=== PATIENT | female | born 1960 | race Caucasian/White ===

== ENCOUNTER 2018-11-27 01:40 | Inpatient (IN) | payer OTHER ==
[~2018-11-27] VITALS: Ht 167.6 cm; Wt 88.9 kg
--- OUTSIDE RECORDS SUMMARY | 2018-11-27 01:42 | XMS REPORT | Summary of Care ---
Author Author [facility] Organization [facility] Address Unknown Phone Unavailable Encounter SANNA Louise(DEX) [id number] Date(s): 07/23/17 - 07/23/17 [facility] [address] [place] [address]- Discharge Disposition: Home or Self Care Attending Physician: Redd Rodriguez MD Referring Physician: Redd Rodriguez MD Vital Signs Most recent to 1 oldest [Reference Range]: Height 170.18 cm (07/23/17 7:26 AM) Weight 99 kg (07/23/17 7:26 AM) Body Mass Index 34.18 m2 (07/23/17 7:26 AM) Problem List Condition Effective Dates Status Health Status Informant AF - Atrial 05/18/15 Active fibrillation(Confirm ed)1 Antiepileptic 04/26/16 Active adverse reaction(Confirmed)2 Atrial Resolved fibrillation(Confirm ed) Chronic atrial 04/26/16 Active fibrillation(Confirm ed)3 CHF (congestive Resolved heart failure)(Confirmed) EP Active (epilepsy)(Confirmed ) Fall(Confirmed)4 04/26/16 Active Acid Active reflux(Confirmed) Generalized anxiety 04/26/16 Active disorder(Confirmed)5 Generalized 04/27/16 Active epilepsy(Confirmed)6 Hx of blood Resolved clots(Confirmed)7 Hypertension(Confirm Active ed) Major depressive 05/18/15 Active disorder(Confirmed)8 Chronic migraine Active without aura or status migrainosus(Confirme d) Migraine without 04/26/16 Active aura, not refractory(Confirmed )9 Depression(Confirmed Active ) HERNAN (obstructive Active sleep apnea)(Confirmed) Palpitations(Confirm 05/31/14 Active ed)10 Recurrent major 04/26/16 Active depression in partial remission(Confirmed) 11 Sciatica(Confirmed) Resolved 1Data migrated from [employer] on 09/23/15. The palpitations were from Afib. Originally documented as Atrial fibrillation. 2Data migrated from [employer] on 09/23/15. SE of TPM in higher dose. We will lower the dose. Originally documented as Antiepileptic adverse reaction, initial encounter. 3Data migrated from [employer] on 09/23/15. On Eliquis. Originally documented as Chronic atrial fibrillation. 4Data migrated from [employer] on 09/23/15. The fall does not appear to have caused harm. She does not need reevaluation. She has ongoing cardiac evaluation. Originally documented as Fall, initial encounter. 5Data migrated from [employer] on 09/23/15. Stable. Originally documented as Generalized anxiety disorder. 6Data migrated from [employer] on 09/23/15. The seizures are less prominent but still active. We have not been able to control them. Though she has very fabio l childhood epilepsy, the seizures are most controlled by her psychic state. Otis ginally documented as Generalized epilepsy, intractable. 7in heart 8Data migrated from [employer] on 09/23/15. Now developing late insomnia and crying typical of MDD. Originally documented as MDD (major depressive disorder). 9Data migrated from [employer] on 09/23/15. The patient s migraines have gone out of control since she has been off of atenolol. The med had to be stopped because of bradycardia in the face of her dysrhythmic disorder. I have discussed this with Dr. Rodriguez. The patient has very few choices left for her CM. We will trial her on nadolol. The patient was clear that this med too could cause heart rate slowing or syncope so self monitoring follow up and close reporting are important. Originally documented as Common migraine without intractability. 10Data migrated from [employer] on 09/23/15. Unclear etiology. Originally documented as Palpitations. 11Data migrated from [employer] on 09/23/15. Doing well. Originally documented as MDD (major depressive disorder), recurrent, in partial remission. Allergies, Adverse Reactions, Alerts Substance Reaction Severity Status metaxalone1 Active Skelaxin Active 1Data migrated from [employer] on 09/21/16. Originally documented as Skelaxin. Medications No Known Medications Results ENDOCRINOLOGY Most recent to 1 oldest [Reference Range]: S Preg [Negative] Negative *NA* (07/23/17 7:41 AM) HEMATOLOGY Most recent to 1 oldest [Reference Range]: WBC [3.7-10.4 K/CMM] 5.4 K/CMM (07/23/17 7:27 AM) RBC [4.20-5.40 4.73 M/CMM M/CMM] (07/23/17 7:27 AM) Hgb [12.0-16.0 g/dL] 12.9 g/dL (07/23/17 7:27 AM) Hct [36.0-48.0 %] 38.4 % (07/23/17 7:27 AM) MCV [80.0-98.0 fL] 81.2 fL (07/23/17 7: AM) MCH [27.0-31.0 pg] 27.3 pg (07/23/17 7: AM) MCHC [32.0-36.0 33.6 g/dL g/dL] (07/23/17 7:27 AM) RDW [11.5-14.5 %] 14.8 % *HI* (07/23/17 7:27 AM) Platelet [133-450 181 K/CMM K/CMM] (07/23/17 7:27 AM) MPV [7.4-10.4 fL] 9.1 fL (07/23/17 7:27 AM) Segs [45.0-75.0 %] 65.1 % (07/23/17 7:27 AM) Lymphocytes 26.6 % [20.0-40.0 %] (07/23/17 7:27 AM) Monocytes [2.0-12.0 5.2 % %] (07/23/17 7:27 AM) Eosinophils [0.0-4.0 2.4 % %] (07/23/17 7:27 AM) Basophils [0.0-1.0 0.7 % %] (07/23/17 7:27 AM) Segs-Bands # 3.5 K/CMM [1.5-8.1 K/CMM] (07/23/17 7:27 AM) Lymphocytes # 1.4 K/CMM [1.0-5.5 K/CMM] (07/23/17 7:27 AM) Monocytes # [0.0-0.8 0.3 K/CMM K/CMM] (07/23/17 7:27 AM) Eosinophils # 0.1 K/CMM [0.0-0.5 K/CMM] (07/23/17 7:27 AM) PT [12.0-14.7 16.5 seconds seconds] *HI* (07/23/17 7:27 AM) INR [0.85-1.17] 1.32 *HI* (07/23/17 7:27 AM) PTT [22.9-35.8 28.4 seconds seconds] (07/23/17 7:27 AM) Immunizations No data available for this section Procedures Procedure Date Related Diagnosis Body Site Lumpectomy 1992 Repair of cervix Social History Social History Type Response Exercise Exercise type: Walking. Employment/School Status: Employed. Highest education level: High school. Alcohol Never Smoking Status Never smoker; Exposure to Tobacco Smoke None; Cigarette Smoking Last 365 Days No; Reg Smoking Cessation Counseling No Assessment and Plan No data available for this section
--- OUTSIDE RECORDS SUMMARY | 2018-11-27 01:42 | XMS REPORT | Summary of Care ---
Author Author [facility] Organization [facility] Address Unknown Phone Unavailable Encounter SANNA Louise(DEX) [id number] Date(s): 07/19/17 - 07/19/17 [facility] [address] [place] [address]- [phone] Discharge Disposition: Home or Self Care Attending Physician: Redd Rodriguez MD Referring Physician: Redd Rodriguez MD Vital Signs Most recent to 1 oldest [Reference Range]: Height 170.18 cm (07/16/17 12:45 PM) Weight 99.091 kg (07/16/17 12:45 PM) Body Mass Index 34.22 m2 (07/16/17 12:45 PM) Problem List Condition Effective Dates Status Health [...] remission(Confirmed) 11 Sciatica(Confirmed) Resolved 1Data migrated from [employer] on 09/23/15. The palpitations were from Afib. Originally documented as Atrial fibrillation. 2Data migrated from [employer] on 09/23/15. SE of TPM in higher dose. We will lower the dose. Originally documented as Antiepileptic adverse reaction, initial encounter. 3Data migrated from [employer] on 09/23/15. On Eliquis. Originally documented as Chronic atrial fibrillation. 4Data migrated from [employer] on 09/23/15. The fall does not appear to have caused harm. She does not need reevaluation. She has ongoing cardiac evaluation. Originally documented as Fall, initial encounter. 5Data migrated from [employer] on 09/23/15. Stable. Originally documented as Generalized anxiety disorder. 6Data migrated from [employer] on 09/23/15. The seizures are less prominent but still active. We have not been able to control them. Though she has very fabio l childhood epilepsy, the seizures are most controlled by her psychic state. Otis ginally documented as Generalized epilepsy, intractable. 7in heart 8Data migrated from [employer] on 09/23/15. Now developing late insomnia and crying typical of MDD. Originally documented as MDD (major depressive disorder). 9Data migrated from [employer] on 09/23/15. The patient s migraines have [...] Common migraine without intractability. 10Data migrated from [employer] on 09/23/15. Unclear etiology. Originally documented as Palpitations. 11Data migrated from [employer] on 09/23/15. Doing well. Originally documented as MDD (major depressive disorder), recurrent, in partial remission. Allergies, Adverse Reactions, Alerts Substance Reaction Severity Status metaxalone1 Active Skelaxin Active 1Data migrated from [employer] on 09/21/16. Originally documented as Skelaxin. Medications Cambia 50 mg oral powder for reconstitution =1 pkt, PO, Daily, PRN Severe Headache, mix in 30 to 60 mL of water, # 18 pkt, 0 Refill(s) Start Date: 07/16/17 Stop Date: 08/03/17 Status: Ordered metoprolol tartrate 50 mg oral tablet 50 mg=1 tab, PO, Bedtime, 0 Refill(s) Start Date: 07/16/17 Status: Ordered Vitamin D3 1000 intl units oral capsule 1,000 IntlUnit=1 cap, PO, Daily, # 100 cap, 0 Refill(s) Start Date: 07/16/17 Status: Ordered Xanax 1 mg oral tablet 1 mg, Route: PO, Drug form: TAB, ONCE, Dosing Weight 99.091, kg, PRN Anxiety, Pr iority: NOW, Start date: 07/19/17 7:16:00 [employer] Start Date: 07/19/17 Stop Date: 07/19/17 Status: Completed Results ELECTROLYTES Most recent to 1 oldest [Reference Range]: Sodium Lvl [135-145 145 mEq/L mEq/L] (07/16/17 12:29 PM) Potassium Lvl 4.4 mEq/L [3.5-5.1 mEq/L] (07/16/17 12:29 PM) Chloride Lvl [95-109 112 mEq/L mEq/L] *HI* (07/16/17 12:29 PM) CO2 [24-32 mEq/L] 26 mEq/L (07/16/17 12:29 PM) AGAP [10.0-20.0 11.4 mEq/L mEq/L] (07/16/17 12:29 PM) CHEM PANEL Most recent to 1 oldest [Reference Range]: Creatinine Lvl 1.17 mg/dL [0.50-1.40 mg/dL] (07/16/17 12:29 PM) eGFR 53 mL/min/1.73m2 1 *NA* (07/16/17 12:29 PM) BUN [7-22 mg/dL] 24 mg/dL *HI* (07/16/17 12:29 PM) B/C Ratio [6-25] 21 (07/16/17 12:29 PM) Glucose Lvl [70-99 79 mg/dL mg/dL] (07/16/17 12:29 PM) Total Protein 7.4 g/dL [6.4-8.4 g/dL] (07/16/17 12:29 PM) Albumin Lvl [3.5-5.0 4.0 g/dL g/dL] (07/16/17 12:29 PM) Globulin [2.7-4.2 3.4 g/dL g/dL] (07/16/17 12:29 PM) A/G Ratio [0.7-1.6] 1.2 (07/16/17 PM) Calcium Lvl 9.0 mg/dL [8.5-10.5 mg/dL] (07/16/17:29 PM) ALT [0-65 unit/L] 35 unit/L (07/16/1729 PM) AST [0-37 unit/L] 18 unit/L (07/16/17:29 PM) Alk Phos [39-136 94 unit/L unit/L] (07/16/17: PM) Bili Total [0.2-1.3 0.5 mg/dL mg/dL] (07/16/1729 PM) 1Result Comment: The eGFR is calculated using the CKD-EPI formula. In most young, healthy individuals the eGFR will be >90 mL/min/1.73m2. The eGFR declines with age. An eGFR of 60-89 may be normal in some populations, particularly the elderly, for whom the CKD-EPI formula has not been extensively validated. Use of the eGFR is not recommended in the following populations: Individuals with unstable creatinine concentrations, including patients and those with serious co-morbid conditions. Patients with extremes in muscle mass or diet. The data above are obtained from the National Kidney Disease Education Program ( NKDEP) which additionally recommends that when the eGFR is used in patients with extremes of body mass index for purposes of drug dosing, the eGFR should be mul tiplied by the estimated BMI. HEMATOLOGY Most recent to 1 oldest [Reference Range]: WBC [3.7-10.4 K/CMM] 6.1 K/CMM (07/16/17 12:29 PM) RBC [4.20-5.40 4.94 M/CMM M/CMM] (07/16/17 12:29 PM) Hgb [12.0-16.0 g/dL] 13.2 g/dL (07/16/17 12:29 PM) Hct [36.0-48.0 %] 40.3 % (07/16/17:29 PM) MCV [80.0-98.0 fL] 81.7 fL (07/16/17:29 PM) MCH [27.0-31.0 pg] 26.8 pg *LOW* (07/16/1729 PM) MCHC [32.0-36.0 32.8 g/dL g/dL] (07/16/17 12:29 PM) RDW [11.5-14.5 %] 14.6 % *HI* (07/16/17:29 PM) Platelet [133-450 187 K/CMM K/CMM] (07/16/17:29 PM) MPV [7.4-10.4 fL] 8.9 fL (07/16/17:29 PM) Segs [45.0-75.0 %] 58.8 % (07/16/17:29 PM) Lymphocytes 32.4 % [20.0-40.0 %] (07/16/17:29 PM) Monocytes [2.0-12.0 5.8 % %] (07/16/17:29 PM) Eosinophils [0.0-4.0 2.4 % %] (07/16/17:29 PM) Basophils [0.0-1.0 0.6 % %] (07/16/17 12:29 PM) Segs-Bands # 3.6 K/CMM [1.5-8.1 K/CMM] (07/16/17:29 PM) Lymphocytes # 2.0 K/CMM [1.0-5.5 K/CMM] (07/16/17 12:29 PM) Monocytes # [0.0-0.8 0.4 K/CMM K/CMM] (07/16/17 12:29 PM) Eosinophils # 0.1 K/CMM [0.0-0.5 K/CMM] (07/16/17 12:29 PM) PT [12.0-14.7 14.1 seconds seconds] (07/16/17 12:29 PM) INR [0.85-1.17] 1.09 (07/16/17 12:29 PM) PTT [22.9-35.8 26.1 seconds seconds] (07/16/17 12:29 PM) Immunizations No data available for this section Procedures Procedure Date Related Diagnosis Body Site Lumpectomy 1991 Repair of cervix Social History Social History Type Response Exercise Exercise type: Walking. Employment/School Status: Employed. Highest education level: High school. Alcohol Never Smoking Status Never smoker; Exposure to Tobacco Smoke None; Cigarette Smoking Last 365 Days No; Reg Smoking Cessation Counseling No Assessment and Plan No data available for this section
--- OUTSIDE RECORDS SUMMARY | 2018-11-27 01:42 | XMS REPORT | Continuity of Care Document ---
Author Author [facility] Address Unknown Phone Unavailable Problems Problem Status Onset Date Classification Date Reported Comments Source UNK Active 07/21/2017 Shruti Generalized epilepsy<sup>6</sup> Active 04/27/2016 Problem 07/26/2017 Data migrated from [employer] on 09/23/15. The seizures are less prominent but still active. We have not been able to control them. Though she has very real childhood epilepsy, the seizures are most controlled by her psychic state. Originally documented as Generalized epilepsy, intractable. [facility] Antiepileptic adverse reaction<sup>2</sup> Active 04/26/2016 Problem 07/26/2017 Data migrated from [employer] on 09/23/15. SE of TPM in higher dose. We will lower the dose. Originally documented as Antiepileptic adverse reaction, initial encounter. [facility] Chronic atrial fibrillation<sup>3</sup> Active 04/26/2016 Problem 07/26/2017 Data migrated from [employer] on 09/23/15. On Eliquis. Originally documented as Chronic atrial fibrillation. Shruti Fall<sup>4</sup> Active 04/26/2016 Problem 07/26/2017 Data migrated from [employer] on 09/23/15. The fall does not appear to have caused harm. She does not need reevaluation. She has ongoing cardiac evaluation. Originally documented as Fall, initial encounter. [facility] Generalized anxiety disorder<sup>5</sup> Active 04/26/2016 Problem 07/26/2017 Data migrated from [employer] on 09/23/15. Stable. Originally documented as Generalized anxiety disorder. [facility] Migraine without aura, not refractory<sup>9</sup> Active 04/26/2016 Problem 07/26/2017 Data migrated from [employer] on 09/23/15. The patient s migraines have [...] Originally documented as Common migraine without intractability. [facility] Recurrent major depression in partial remission<sup>11</sup> Active 04/26/2016 Problem 07/26/2017 Data migrated from [employer] on 09/23/15. Doing well. Originally documented as MDD (major depressive disorder), recurrent, in partial remission. [facility] AF - Atrial fibrillation<sup>1</sup> Active 05/18/2015 Problem 07/26/2017 Data migrated from [employer] on 09/23/15. The palpitations were from Afib. Originally documented as Atrial fibrillation. [facility] Major depressive disorder<sup>8</sup> Active 05/18/2015 Problem 07/26/2017 Data migrated from [employer] on 09/23/15. Now developing late insomnia and crying typical of MDD. Originally documented as MDD (major depressive disorder). [facility] SOB/ AFIB/ PALPATAIONS Active 06/22/2014 [facility] AFIB Active 06/21/2014 [facility] Palpitations<sup>10</sup> Active 05/31/2014 Problem 07/26/2017 Data migrated from [employer] on 09/23/15. Unclear etiology. Originally documented as Palpitations. [facility] Atrial fibrillation Resolved Problem 07/26/2017 [facility] CHF (<span ID="[id number]">Confirmed</span>) Resolved Problem 07/26/2017 [facility] EP (<span ID="[id number]">Confirmed</span>) Active Problem 07/26/2017 [facility] Acid reflux Active Problem 07/26/2017 [facility] Hx of blood clots<sup>7</sup> Resolved Problem 07/26/2017 in heart [facility] Hypertension Active Problem 07/26/2017 [facility] Chronic migraine without aura or status migrainosus Active Problem 07/26/2017 [facility] Depression Active Problem 07/26/2017 [facility] HERNAN (<span ID="[id number]">Confirmed</span>) Active Problem 07/26/2017 [facility] Sciatica Resolved Problem 07/26/2017 [facility] Medications Medication Details Route Status Patient Instructions Ordering Provider Order Date Source Alprazolam 1 MG Oral Tablet [Xanax] 1 mg, Route: PO, Drug form: TAB, ONCE, Dosing Weight 99.091, kg, PRN Anxiety, Priority: NOW, Start date: 07/19/17 7:16:[address] Inactive 07/19/2017 [facility] metoprolol tartrate 50 mg oral tablet 50 mg=1 tab, PO, Bedtime, 0 Refill(s) Active 07/16/2017 [facility] Vitamin D3 1000 intl units oral capsule 1,000 IntlUnit=1 cap, PO, Daily, # 100 cap, 0 Refill(s) Active 07/16/2017 [facility] Diclofenac Potassium 1.67 MG/ML Oral Solution [Cambia] =1 pkt, PO, Daily, PRN Severe Headache, mix in 30 to 60 mL of water, # 18 pkt, 0 Refill(s) Active 07/16/2017 [facility] Allergies, Adverse Reactions, Alerts Substance Category Reaction Severity Reaction type Status Date Reported Comments Source metaxalone<sup>1</sup> Assertion Drug allergy Active 04/25/2013 Data migrated from [employer] on 09/21/16. Originally documented as Skelaxin. [facility] Skelaxin Assertion Drug allergy Active [facility] Immunizations Immunization Date Given Site Status Last Updated Comments Source Results Order Name Results Value Reference Range Date Interpretation Comments Source ENDOCRINOLOGY S Preg Negative *NA* (07/23/17 7:41 AM) Negative 07/23/[address] [facility] MCH 27.3 pg 27.0 - 31.0 07/23/[address] [facility] Hct 38.4 % 36.0 - 48.0 07/23/[address] [facility] Hgb 12.9 g/dL 12.0 - 16.0 07/23/[address] [facility] RDW 14.8 % 11.5 - 14.5 07/23/[address] [facility] Platelet 181 K/CMM 133 - 450 07/23/[address] [facility] MCHC 33.6 g/dL 32.0 - 36.0 07/23/[address] [facility] MPV 9.1 fL 7.4 - 10.4 07/23/[address] [facility] RBC 4.73 M/CMM 4.20 - 5.40 07/23/[address] [facility] MCV 81.2 fL 80.0 - 98.0 07/23/[address] [facility] WBC 5.4 K/CMM 3.7 - 10.4 07/23/2017 [facility] HEMATOLOGY Segs 65.1 % 45.0 - 75.0 07/23/[address] [facility] Lymphocytes 26.6 % 20.0 - 40.0 07/23/[address] [facility] Segs-Bands # 3.5 K/CMM 1.5 - 8.1 07/23/[address] [facility] Basophils 0.7 % 0.0 - 1.0 07/23/2017 [facility] HEMATOLOGY Eosinophils 2.4 % 0.0 - 4.0 07/23/2017 [facility] HEMATOLOGY Monocytes 5.2 % 2.0 - 12.0 07/23/[address] [facility] Lymphocytes # 1.4 K/CMM 1.0 - 5.5 07/23/[address] [facility] Eosinophils # 0.1 K/CMM 0.0 - 0.5 07/23/[address] [facility] Monocytes # 0.3 K/CMM 0.0 - 0.8 07/23/[address] [facility] INR 1.32 0.85 - 1.17 07/23/[address] [facility] PT 16.5 s 12.0 - 14.7 07/23/[address] [facility] PTT 28.4 s 22.9 - 35.8 07/23/2017 [facility] ELECTROLYTES AGAP 11.4 meq/L 10.0 - 20.0 07/16/2017 [facility] ELECTROLYTES Globulin 3.4 g/dL 2.7 - 4.2 07/16/2017 [facility] ELECTROLYTES A/G Ratio 1.2 0.7 - 1.6 07/16/2017 [facility] ELECTROLYTES B/C Ratio 21 6 - 25 07/16/2017 [facility] ELECTROLYTES eGFR 53 mL/min/1.73m2 07/16/2017 Result Comment: The eGFR is calculated using the [...] from the National Kidney Disease Education Program (NKDEP) which additionally recommends that when the eGFR is used in patients with extremes of body mass index for purposes of drug dosing, the eGFR should be multiplied by the estimated BMI. [facility] ELECTROLYTES Total Protein 7.4 g/dL 6.4 - 8.4 07/16/2017 [facility] ELECTROLYTES Calcium Lvl 9.0 mg/dL 8.5 - 10.5 07/16/2017 [facility] ELECTROLYTES Albumin Lvl 4.0 g/dL 3.5 - 5.0 07/16/2017 [facility] ELECTROLYTES ALT 35 unit/L 0 - 65 07/16/2017 [facility] ELECTROLYTES Bili Total 0.5 mg/dL 0.2 - 1.3 07/16/2017 [facility] ELECTROLYTES Alk Phos 94 unit/L 39 - 136 07/16/2017 [facility] ELECTROLYTES AST 18 unit/L 0 - 37 07/16/2017 [facility] [employer]LECTROLYTES Glucose Lvl 79 mg/dL 70 - 99 07/16/2017 [facility] ELECTROLYTES BUN 24 mg/dL 7 - 22 07/16/2017 [facility] ELECTROLYTES Creatinine Lvl 1.17 mg/dL 0.50 - 1.40 07/16/2017 [facility] ELECTROLYTES Sodium Lvl 145 meq/L 135 - 145 07/16/2017 [facility] ELECTROLYTES Potassium Lvl 4.4 meq/L 3.5 - 5.1 07/16/2017 [facility] ELECTROLYTES Chloride Lvl 112 meq/L 95 - 109 07/16/2017 [facility] ELECTROLYTES CO2 26 meq/L 24 - 32 07/16/2017 [facility] HEMATOLOGY PTT 26.1 s 22.9 - 35.8 07/16/2017 [facility] HEMATOLOGY PT 14.1 s 12.0 - 14.7 07/16/2017 [facility] HEMATOLOGY INR 1.09 0.85 - 1.17 07/16/2017 [facility] HEMATOLOGY MPV 8.9 fL 7.4 - 10.4 07/16/2017 [facility] HEMATOLOGY Hgb 13.2 g/dL 12.0 - 16.0 07/16/2017 [facility] HEMATOLOGY Platelet 187 K/CMM 133 - 450 07/16/2017 [facility] HEMATOLOGY RDW 14.6 % 11.5 - 14.5 07/16/2017 [facility] HEMATOLOGY MCV 81.7 fL 80.0 - 98.0 07/16/2017 [facility] HEMATOLOGY Hct 40.3 % 36.0 - 48.0 07/16/[address] [facility] MCH 26.8 pg 27.0 - 31.0 07/16/2017 [facility] HEMATOLOGY MCHC 32.8 g/dL 32.0 - 36.0 07/16/2017 [facility] HEMATOLOGY WBC 6.1 K/CMM 3.7 - 10.4 07/16/2017 [facility] HEMATOLOGY RBC 4.94 M/CMM 4.20 - 5.40 07/16/2017 [facility] HEMATOLOGY Basophils 0.6 % 0.0 - 1.0 07/16/2017 [facility] HEMATOLOGY Eosinophils 2.4 % 0.0 - 4.0 07/16/2017 [facility] HEMATOLOGY Segs-Bands # 3.6 K/CMM 1.5 - 8.1 07/16/2017 [facility] HEMATOLOGY Lymphocytes # 2.0 K/CMM 1.0 - 5.5 07/16/2017 [facility] HEMATOLOGY Eosinophils # 0.1 K/CMM 0.0 - 0.5 07/16/2017 [facility] HEMATOLOGY Monocytes # 0.4 K/CMM 0.0 - 0.8 07/16/[address] [facility] Lymphocytes 32.4 % 20.0 - 40.0 07/16/2017 [facility] HEMATOLOGY Segs 58.8 % 45.0 - 75.0 07/16/2017 [facility] HEMATOLOGY Monocytes 5.8 % 2.0 - 12.0 07/16/2017 [facility] Vital Signs Vital Sign Value Date Comments Source Height 170.18 cm 07/23/2017 [facility] BMI Calculated 34.18 07/23/2017 [facility] Weight 99 07/23/2017 [facility] Height 170.18 cm 07/16/2017 [facility] BMI Calculated 34.22 07/16/2017 [facility] Weight 99.091 07/16/2017 [facility] Encounters Location Location Details Encounter Type Encounter Number Reason For Visit Attending Provider ADM Date DC Date Status Source Outpatient [id number] NIXON KEARA 10/27/2016 [facility] Bedded Outpatient [id number] Redd Jennifer 07/19/2017 07/19/2017 [facility] Bedded Outpatient [id number] Reddiraida Rodriguez 07/23/2017 07/23/2017 [facility] Procedures Procedure Code Date Perfomer Comments Source Lumpectomy [id number] 09/06/1991 [facility] Repair of cervix [id number] Shruti
[2018-11-27 02:52] LABS: BASOPHILS % 0.4 % (0.0-1.0); EOSINOPHILS # (AUTO) 0.2 (0.0-0.4); EOSINOPHILS % 2.3 % (0.0-6.0); HEMATOCRIT 40.6 % (34.2-44.1); HEMOGLOBIN 13.2 g/dL (12.0-16.0); LYMPHOCYTES # (AUTO) 1.7 (1.0-3.2); LYMPHOCYTES % 23.4 % (18.0-39.1); MEAN CORPUSCULAR HEMOGLOBIN 28.3 pg (28-32); MEAN CORPUSCULAR HGB CONC 32.5 g/dL (31-35); MEAN CORPUSCULAR VOLUME 87.1 fL (81-99); MONOCYTES # (AUTO) 0.4 (0.2-0.8); MONOCYTES % 5.7 % (4.4-11.3); NEUTROPHILS # (AUTO) 4.8 (2.1-6.9); NEUTROPHILS % 67.9 % (38.7-80.0); PLATELET COUNT 202 x10e3/uL (140-360); RED BLOOD COUNT 4.66 x10e6/uL (3.6-5.1); RED CELL DISTRIBUTION WIDTH 13.6 % (11.7-14.4)
[2018-11-27 03:04] LABS: INR 0.92; PARTIAL THROMBOPLASTIN TIME 24.4 seconds (23.8-35.5); PROTHROMBIN TIME 12.8 seconds (11.9-14.5)
[2018-11-27 03:12] LABS: ALBUMIN 3.9 g/dL (3.5-5.0); ALBUMIN/GLOBULIN RATIO 1.2 (0.8-2.0); ANION GAP 11.7 mmol/L (8-16); CALCIUM 9.5 mg/dL (8.4-10.2); CREATININE, SERUM 1.32 mg/dL (0.57-1.11); POTASSIUM 3.7 mmol/L (3.5-5.1)
[2018-11-27] MEDS ORDERED: DICYCLOMINE HCL 20 MG/2 ML VIAL IM ONE ×2 (03:56→04:00)
[2018-11-27] MEDS ORDERED: HYDROCODONE/APAP 7.5MG-325MG 1 EA TAB PO PRN ×2 (06:00→23:45)
[2018-11-27 06:07] LABS: HEMATOCRIT 36.6 % (34.2-44.1); HEMOGLOBIN 11.9 g/dL (12.0-16.0)
--- NOTE | 2018-11-27 06:30 | NUR ---
PT C BLOODY STOOL THIS AM. TO BATHROOM TO ASSESS. NO STOOL NOTED, MULTIPLE SMALL CLOTS NOTED IN TOILET. MD INFORMED.
[2018-11-27] MEDS ORDERED: VITAMIN D32000 UNI1 PO (06:43)
[2018-11-27] MEDS ORDERED: LAMOTRIGINE150 MG PO (06:43)
[2018-11-27] MEDS ORDERED: LISINOPRIL20 MG PO (06:43)
[2018-11-27] MEDS ORDERED: TOPIRAMATE100 MG PO (06:43)
[2018-11-27] MEDS ORDERED: METOPROLOL SUCC50 MG PO (06:43)
[2018-11-27] MEDS ORDERED: ASPIR 8181 MG PO (06:43)
[2018-11-27] MEDS ORDERED: PAROXETINE HCL20 MG PO (06:43)
--- NOTE | 2018-11-27 07:14 | NUR ---
History and Physical cc: BRBPR HPI: 58yoF, PCP , GI , Card , developed BRBPR. Pt only on ASA 81mg. Was on eliquis up to 2 months ago. last colonoscopy 2017 pt states negative, no hemorrhoids or diverticulosis. PMH: epilepsy, A.fib s/p ablation in 2017, anxiety PSHx: Ablation of a.fib in 2017, lumpectomy benign; loop recorder Allergies; see emr FH/SH: ; occ etoh; no cigs; Meds; see MAR ROS: no f/c/s/n/V/D/LOCKWOOD/vision changes/back pain/skin rash v/s rev'd PE tired appearing anicteric ns1s2 mod bs soft nd; Left lower abdomen tender; no rebound no e/t skin dry n. affect labs/meds re'vd A/P: 58yoF BRBPR Mild Anemia MATT Obesity BMI 30.7 Anxiety d/o Epilepsy PLAN IV ppi IV fluids HOLD asa and aceI hba1c/lipids. anemia panel. Consult Pelon SCD/ppi Aydin Cuellar MD, PhD.
--- NOTE | 2018-11-27 07:44 | NUR ---
DR. OLIVIER YAN IN E.R. TO EVALUATE PATIENTS
[2018-11-27 08:13] LABS: FERRITIN 111.09 ng/mL (4.63-204.00); THYROID STIMULATING HORMONE 1.178 uIU/mL (0.350-4.940)
[2018-11-27] MEDS ORDERED: PANTOPRAZOLE 40 MG 10ML VIAL ONE (08:25)
[2018-11-27] MEDS: TOPIRAMATE 100 MG TAB PO SCH ×2 (08:30→17:00)
[2018-11-27] MEDS: METOPROLOL SUCCINATE 50 MG TAB XL PO SCH (08:30)
[2018-11-27] MEDS: MULTIVITAMINS/MINERALS TAB PO SCH (08:30)
[2018-11-27 08:34] LABS: CLARITY,URINE CLEAR (CLEAR); COLOR,URINE YELLOW (YELLOW)
[2018-11-27 08:35] LABS: LEUKOCYTE ESTERASE ,URINE TRACE (NEGATIVE); NITRITE,URINE NEGATIVE (NEGATIVE); PROTEIN,URINE DIPSTICK NEGATIVE (NEGATIVE)
[2018-11-27 08:36] LABS: BILIRUBIN,URINE NEGATIVE (NEGATIVE); KETONES,URINE NEGATIVE (NEGATIVE); URINE UROBILINOGEN 0.2 mg/dL (0.2 - 1)
[2018-11-27 08:38] LABS: BACTERIA,URINE FEW /HPF; EPITHELIAL CELLS,URINE MODERATE /LPF; MUCUS,URINE FEW (RARE); RBC,URINE 0-5 /HPF (0-5)
[2018-11-27] MEDS: SODIUM CHLORIDE 0.9% 1000ML 1,000 ML IV SCH ×3 (08:42→23:07)
--- NOTE | 2018-11-27 08:43 | NUR ---
NORMAL SALINE INCREASED FROM 75CC/HR TO 150 CC/HR
--- NOTE | 2018-11-27 08:44 | NUR ---
TYPE AND CROSS MATCH COMPLETED
[2018-11-27] MEDS ORDERED: SODIUM CHLORIDE 0.9% 250ML 250 ML IV ONE (08:45)
[2018-11-27] MEDS ORDERED: PANTOPRAZOLE INJ 40 MG in SODIUM CHLORIDE 0.9% 50ML 50 ML IV SCH (08:45)
[2018-11-27] MEDS ORDERED: PAROXETINE HCL 20 MG TAB PO SCH (09:00)
[2018-11-27] MEDS ORDERED: LAMOTRIGINE 100 MG TAB PO SCH (09:00)
[2018-11-27] MEDS ORDERED: NON-FORMULARY MEDICATION (Lamotrigine 300 MG) PO SCH (09:00)
[2018-11-27] MEDS: PANTOPRAZOL 40MG/SOD CHL 0.9% 50 ML IV SCH ×3 (09:33→23:07)
[2018-11-27 10:42] LABS: HEMATOCRIT 36.7 % (34.2-44.1); HEMOGLOBIN 11.8 g/dL (12.0-16.0)
--- NOTE | 2018-11-27 11:00 | NUR ---
walking report complete with katherin page
--- NOTE | 2018-11-27 11:00 | NUR ---
BEDSIDE REPORT TO ALAN Joyce
--- NOTE | 2018-11-27 11:30 | NUR ---
DR. JOSHUA IN WITH PT AT THIS TIME
--- NOTE | 2018-11-27 14:00 | NUR ---
TOLERATING CLEAR LIQUIDS AT THIS TIME
[2018-11-27] MEDS ORDERED: PEG (High)/E-LYTE SOLN 4,000 ML BTL PO ONE (14:15)
[2018-11-27 15:17] LABS: HEMATOCRIT 37.2 % (34.2-44.1)
--- NOTE | 2018-11-27 15:53 | NUR ---
PT PLACED INTO [facility] BED. BSC PROVIDED; BOWEL PREP ORDERED.
--- NOTE | 2018-11-27 16:40 | NUR ---
t.o. rec'd from dr. deras for this pt to be downgraded to med-surg
[2018-11-27] MEDS: PAROXETINE HCL 20 MG TAB PO SCH (17:00)
--- NOTE | 2018-11-27 17:59 | Consultation ---
DATE OF CONSULTATION: CHIEF COMPLAINT: Abdominal pain and blood in stool. HISTORY OF PRESENT ILLNESS: Very pleasant 58-year-old lady, came in with lower abdominal cramping, diarrhea, and blood in stool symptoms for the last 24 hours. She reports no fevers, no chills. She had a white count that was normal. She had a colonoscopy two and a half years ago by Dr. Garrido that showed polyp and hemorrhoids. She had an EGD that showed a hiatal hernia. PAST MEDICAL HISTORY: Hypertension. PAST SURGICAL HISTORY: Not significant. SOCIAL HISTORY: Lives at home. No toxic habits. MEDICATIONS: See list. ALLERGIES: NOT SIGNIFICANT. REVIEW OF SYSTEMS: Low abdominal pain and blood in stool. PHYSICAL EXAMINATION: VITAL SIGNS: Blood pressure 110/70, pulse 60, and temperature 98. GENERAL: Well-nourished white lady, in no distress. HEENT: No pallor. ABDOMEN: Soft. Slightly tender in the lower abdomen. EXTREMITIES: No edema. ASSESSMENT AND PLAN: Rectal bleeding, appears to be either ischemic or infectious colitis. The patient did not have diverticulosis on last colonoscopy. The bleeding appears to be lower GI. At the present time, I will recommend continue Protonix. We will start antibiotics. Obtain a CAT scan of the abdomen and pelvis today. Proceed with colonoscopy tomorrow. Andres Jorgensen MD HSO/MODL /[id number] cc: Aaron Becker MD
[2018-11-27 18:00] VITALS: BP 143/74
--- NOTE | 2018-11-27 18:00 | NUR ---
RECEIVED PT TO FLOOR AA0X3. PT IS IN NO S.S OF DISTRESS. DENIES PAIN. PT HAS 2 IV ACCESS ONE IN THE LEFT AC 20 AND ONE IN THE RIGHT FA 20 CONNECTED TO IV FLUIDS WITH NS AT 150CCHR. BOTH SITES ARE CLEAN AND DRY INTRODUCED PT TO ROOM AND CALL LIGHT. INSTRUCTED TO CALL FOR ASSISTANCE IF NEEDED
[2018-11-27 18:23] VITALS: BP 143/74
--- NOTE | 2018-11-27 18:23 | Diagnostic Imaging Report ---
EXAMINATION: CT of the abdomen and pelvis with contrast. TECHNIQUE: Helical CT images of the abdomen and pelvis were performed from the lung bases to the lesser trochanters after the intravenous administration of 100 cc of Isovue 300 and the oral administration of none. Coronal and sagittal reformatted images were obtained. COMPARISON: None. CLINICAL HISTORY:bleed DISCUSSION: ABDOMEN/PELVIS: LOWER THORAX:Unremarkable. HEPATOBILIARY: Right hepatic lobe 6.5 cm mass with peripheral nodular enhancement. No intra-or extrahepatic biliary ductal dilation. The gallbladder is normal. SPLEEN: No splenomegaly. PANCREAS: No focal masses or ductal dilatation. ADRENALS: No adrenal nodules. KIDNEYS/URETERS: 10 cm superior left renal cyst with single septation anteriorly. 3.7 cm interpolar left renal cyst. Right kidney unremarkable. No solid mass lesions. PELVIC ORGANS/BLADDER: The bladder is normal. PERITONEUM/RETROPERITONEUM: No free air or fluid. LYMPH NODES: No intra-abdominal, retroperitoneal, pelvic or inguinal lymphadenopathy. VESSELS: The celiac trunk,superior and inferior mesenteric and bilateral renal arteries are patent The portal, superior mesenteric and splenic veins are patent. GI TRACT: Focal colonic thickening of the descending colon axial image 52 with adjacent stranding. BONES AND SOFT TISSUE: No bony destructive lesions. No soft tissue abnormalities. IMPRESSION: Colitis involving the descending colon. 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 Left renal cysts, largest 10 cm with single thin septation. Signed by: Dr. Miguel Beasley M.D. on 11/27/2018 6:20 PM
[2018-11-27 18:29] VITALS: BP 143/74
[2018-11-27] MEDS ORDERED: SODIUM CHLORIDE 0.9% 50ML 50 ML ONE (18:39)
[2018-11-27] MEDS ORDERED: IOPAMIDOL 370 MG/ML 200 ML INFUS..BTL INJ ONE (18:40)
[2018-11-27] MEDS: LAMOTRIGINE 100 MG TAB PO SCH (18:56)
[2018-11-27 19:34] VITALS: BP 133/73
--- NOTE | 2018-11-27 19:45 | NUR ---
REPORT TAKEN FROM AM RN.WALKING ROUNDS DONE.AAOX3.NO RESP.DISTRESS..BED LOCKED AND IN LOWEST POSITION.PHONE AND CALL LIGHT WITHIN REACH.INSTRUCTED TO CALL FOR ASSISTANCE NEEDED.
[2018-11-27 21:00] VITALS: BP 133/73
--- NOTE | 2018-11-27 23:00 | NUR ---
STOOL SENT TO THE LAB.TAKING GOLYTELY.HAS BOWEL MOVEMENT.BUT NOT CLEARED.
[2018-11-28] VITALS (8 sets, daily range): BP systolic 119–143; BP diastolic 59–70
--- NOTE | 2018-11-28 02:06 | NUR ---
LYEING COMFORTABLY IN THE BED.PT IS ON NPO.
[2018-11-28] MEDS: PANTOPRAZOL 40MG/SOD CHL 0.9% 50 ML IV SCH ×4 (05:28→23:30)
[2018-11-28] MEDS: SODIUM CHLORIDE 0.9% 1000ML 1,000 ML IV SCH ×4 (05:28→23:58)
[2018-11-28] MEDS: LAMOTRIGINE 100 MG TAB PO SCH ×3 (06:00→18:13)
--- NOTE | 2018-11-28 07:00 | NUR ---
LAMICITAL 300MG PO GIVEN WITH SIP OF WATER AFTER DISCUSS WITH AM RN.
--- NOTE | 2018-11-28 07:21 | NUR ---
Report given to the oncoming rn.walking rounds done.stable condition.
[2018-11-28] MEDS: TOPIRAMATE 100 MG TAB PO SCH ×2 (08:48→18:13)
[2018-11-28] MEDS: METOPROLOL SUCCINATE 50 MG TAB XL PO SCH (08:48)
[2018-11-28] MEDS: PAROXETINE HCL 20 MG TAB PO SCH (08:50)
[2018-11-28] MEDS: MULTIVITAMINS/MINERALS TAB PO SCH (08:50)
[2018-11-28] MEDS ORDERED: PANTOPRAZOLE 40 MG 10ML VIAL IV SCH (09:00)
--- NOTE | 2018-11-28 12:24 | NUR ---
IM- progress note O/N: no events ROS: no f/c/s/n/V/D/LOCKOWOD/vision changes/back pain/skin rash v/s rev'd PE tired appearing anicteric ns1s2 mod bs soft nd; Left lower abdomen tender; no rebound no e/t skin dry n. affect labs/meds re'vd A/P: 58yoF BRBPR Mild Anemia MATT Obesity BMI 30.7 Anxiety d/o Epilepsy PLAN IV ppi IV fluids HOLD asa and aceI hba1c/lipids. anemia panel. Consult Pelon SCD/ppi 11/28 iron deficiency and low b12; use oral B12 and oral iron. endoscopy pending; check renal fn. Aydin Cuellar MD, PhD.
--- NOTE | 2018-11-28 14:30 | NUR ---
down to procedures left in stable condition
[2018-11-28] MEDS: LEVOFLOXACIN 500MG/D5W 100ML 100 ML IV SCH (16:44)
[2018-11-28] MEDS ORDERED: LAMOTRIGINE 100 MG TAB PO SCH (18:00)
[2018-11-28] MEDS: METRONIDAZOLE 500MG/NS 100ML 100 ML IV SCH (18:12)
[2018-11-28] MEDS: FERROUS SULFATE 325 MG TAB PO SCH (18:13)
[2018-11-28] MEDS ORDERED: MIDAZOLAM HCL 2 MG/2 ML VIAL ONE (19:35)
[2018-11-28] MEDS ORDERED: PROPOFOL IV EMULSION 10 MG/ML 20 ML VIAL ONE (20:08)
[2018-11-29] VITALS: BP 136/63
[2018-11-29] MEDS: METRONIDAZOLE 500MG/NS 100ML 100 ML IV SCH ×3 (01:25→16:39)
[2018-11-29] MEDS ORDERED: HYDROCODONE/APAP 7.5MG-325MG 1 EA TAB PO PRN (01:27)
[2018-11-29 04:00] VITALS: BP 103/50
[2018-11-29] MEDS: PANTOPRAZOL 40MG/SOD CHL 0.9% 50 ML IV SCH ×3 (04:13→14:00)
[2018-11-29] MEDS: LAMOTRIGINE 100 MG TAB PO SCH ×2 (06:07→17:48)
--- NOTE | 2018-11-29 06:10 | NUR ---
Patient refused scd
[2018-11-29] MEDS: SODIUM CHLORIDE 0.9% 1000ML 1,000 ML IV SCH ×2 (06:38→13:18)
--- NOTE | 2018-11-29 06:47 | NUR ---
IM- progress note O/N: no events ROS: no f/c/s/n/V/D/LOCKWOOD/vision changes/back pain/skin rash v/s rev'd PE tired appearing anicteric ns1s2 mod bs soft nd; Left lower abdomen tender; no rebound no e/t skin dry n. affect labs/meds re'vd A/P: 58yoF BRBPR Mild Anemia MATT Obesity BMI 30.7 Anxiety d/o Epilepsy PLAN IV ppi IV fluids HOLD asa and aceI hba1c/lipids. anemia panel. Consult [place] SCD/ppi 11/28 iron deficiency and low b12; use oral B12 and oral iron. endoscopy pending; check renal fn. 11/29 s/p endoscopy; Pt has ischemic colitis- cont abx; Bradycardia- check 12 lead EKG. 09/07 metoprolol. Aydin Cuellar MD, PhD.
--- NOTE | 2018-11-29 06:50 | NUR ---
episode of bradycardia noted when asleep. Patient was asymptomatic. Dr. Cuellar notified new orders received.
[2018-11-29 07:24] LABS: BASOPHILS % 0.4 % (0.0-1.0); EOSINOPHILS # (AUTO) 0.2 (0.0-0.4); EOSINOPHILS % 3.6 % (0.0-6.0); HEMATOCRIT 35.1 % (34.2-44.1); HEMOGLOBIN 11.3 g/dL (12.0-16.0); LYMPHOCYTES # (AUTO) 1.4 (1.0-3.2); LYMPHOCYTES % 28.4 % (18.0-39.1); MEAN CORPUSCULAR HEMOGLOBIN 28.5 pg (28-32); MEAN CORPUSCULAR HGB CONC 32.2 g/dL (31-35); MEAN CORPUSCULAR VOLUME 88.6 fL (81-99); MONOCYTES # (AUTO) 0.3 (0.2-0.8); MONOCYTES % 6.3 % (4.4-11.3); NEUTROPHILS # (AUTO) 2.9 (2.1-6.9); NEUTROPHILS % 61.1 % (38.7-80.0); PLATELET COUNT 156 x10e3/uL (140-360); RED BLOOD COUNT 3.96 x10e6/uL (3.6-5.1); RED CELL DISTRIBUTION WIDTH 13.5 % (11.7-14.4)
[2018-11-29 07:56] LABS: ANION GAP 9.9 mmol/L (8-16); BLOOD UREA NITROGEN 9 mg/dL (7-26); BUN/CREATININE RATIO 10 (6-25); CALCIUM 8.1 mg/dL (8.4-10.2); CARBON DIOXIDE 21 mmol/L (22-29); CHLORIDE 109 mmol/L (98-107); CREATININE, SERUM 0.91 mg/dL (0.57-1.11); EST GLOMERULAR FILTRATION RATE > 60 ML/MIN (60-); GLUCOSE 76 mg/dL (74-118); POTASSIUM 3.9 mmol/L (3.5-5.1); SODIUM 136 mmol/L (136-145)
[2018-11-29 08:17] VITALS: BP 134/66
[2018-11-29] MEDS ORDERED: METOPROLOL SUCCINATE 50 MG TAB XL PO SCH (09:00)
[2018-11-29] MEDS: PAROXETINE HCL 20 MG TAB PO SCH (09:00)
[2018-11-29] MEDS ORDERED: CYANOCOBALAMIN 1,000 MCG TAB PO SCH (09:00)
[2018-11-29] MEDS: FERROUS SULFATE 325 MG TAB PO SCH ×2 (09:05→17:48)
[2018-11-29] MEDS: MULTIVITAMINS/MINERALS TAB PO SCH (09:05)
[2018-11-29] MEDS: TOPIRAMATE 100 MG TAB PO SCH ×2 (09:08→17:48)
[2018-11-29 09:15] VITALS: BP 134/66
[2018-11-29 12:00] VITALS: BP 136/76
--- NOTE | 2018-11-29 14:31 | NUR ---
Spoke with Dr. Garrido regarding discontinuing the protonix drip. New order to dc and start oral medication
[2018-11-29 16:19] VITALS: BP 152/79
[2018-11-29] MEDS: LEVOFLOXACIN 500MG/D5W 100ML 100 ML IV SCH (16:39)
--- NOTE | 2018-11-29 17:52 | NUR ---
Call placed to Dr. deras regarding discharge. to call prescriptions into [facility] pharmacy on [address] [phone]. Will inform the patient
--- NOTE | 2018-11-29 18:40 | NUR ---
Patient discharged from facility to home. Patient assiste dout via staff. reviewed all discharge paperwork, follow up appts and RX's called into pharmacy. IV's removed and pressure dressing applied.
[2018-11-29] MEDS ORDERED: PAROXETINE HCL 20 MG TAB PO SCH (21:00)
[2018-11-30] MEDS ORDERED: PANTOPRAZOLE SOD 40 MG TABEC PO SCH (07:30)
--- NOTE | 2018-12-05 13:36 | NUR ---
Discharge summary A/P: 58yoF BRBPR Mild Anemia MATT Obesity BMI 30.7 Anxiety d/o Epilepsy PLAN IV ppi IV fluids HOLD asa and aceI hba1c/lipids. anemia panel. Consult Pelon SCD/ppi 11/28 iron deficiency and low b12; use oral B12 and oral iron. endoscopy pending; check renal fn. 11/29 s/p endoscopy; Pt has ischemic colitis- cont abx; Bradycardia- check 12 lead EKG. 1/2 metoprolol. d/c home f/u pcp 1 week GI 3-5 days Stable Aydin Cuellar MD, PhD.
== END 2018-11-29 18:40 | disposition home or self-care (01) | DRG 394 ==
LOC: ER 01:40 → ERHOLD 06:51 → OBSVTOIN 08:45 → MED/SURG 17:55
PROVIDERS: ADMIT Internal Medicine; ATTEND Internal Medicine
PROC: 0DBG8ZX Excision of Left Large Intestine, Via Natural or Artificial Opening Endoscopic, Diagnostic (ICD-10-PCS; principal; 2018-11-28 10:30)
DX: K55.9 Vascular disorder of intestine, unspecified (principal); N17.9 Acute kidney failure, unspecified; K64.8 Other hemorrhoids; D64.9 Anemia, unspecified; E66.9 Obesity, unspecified; Z68.30 Body mass index [BMI] 30.0-30.9, adult; F41.9 Anxiety disorder, unspecified; G40.909 Epilepsy, unspecified, not intractable, without status epilepticus; I10 Essential (primary) hypertension; I48.91 Unspecified atrial fibrillation; Z88.8 Allergy status to other drugs, medicaments and biological substances
CPT/HCPCS: 36415; 45380; 74177; 80048; 80053; 81001; 82270; 82607; 82728; 83540; 84443; 84466; 85014; 85018; 85025; 85610; 85730; 86850; 86900; 86920; 88305; 93005; 96372; 99284; J0500; J1956; J2250; J7030; Q9967

== ENCOUNTER 2018-12-04 23:28 | Inpatient (IN) | payer BC, OTHER ==
[~2018-12-04] VITALS: Ht 170.2 cm; Wt 92.1 kg
[~2018-12-04 23:28] MED LIST: ASPIR 8181 MG PO; LAMOTRIGINE150 MG PO; LISINOPRIL20 MG PO; METOPROLOL SUCC50 MG PO; PAROXETINE HCL20 MG PO; TOPIRAMATE100 MG PO; VITAMIN D32000 UNI1 PO
--- OUTSIDE RECORDS SUMMARY | 2018-12-04 23:31 | XMS REPORT ---
Author Author [facility] Address Unknown Phone Unavailable Care Team Providers Care [employer] Judge Name Role Phone WALTER YAN Unavailable Unavailable Problems This patient has no known problems. Allergies, Adverse Reactions, Alerts This patient has no known allergies or adverse reactions. Medications This patient has no known medications. Results Test Description Test Time Test Comments Text Results Atomic Results Result Comments CT ABDOMEN/PELVIS W 2018-11-27 18:14:00 [place] [id number] Patient Name: MAYTE NEWMAN MR #: [id number] : 1960 Age/Sex: 58/F Req #: [id number] Adm Physician: WALTER YAN MD Ordered by: MITCHELL ESTRADA MD Report #: [id number] Location: MED/SURG Room/Bed: [facility]– [place] Procedure: [id number] CT/CT ABDOMEN/PELVIS W Exam Date: 11/27/18 Exam Time: 1730 REPORT STATUS: Signed EXAMINATION: CT of the abdomen and pelvis with contras t. TECHNIQUE: Helical CT images of the abdomen and pelvis were performed from the lung bases to the lesser trochanters after the intravenous administration of 100 cc of Isovue 300 and the oral administration of none. Coronal and sagittal reformatted images were obtained. COMPARISON: None. CLINICAL HISTORY:bleed DISCUSSION: ABDOMEN/PELVIS: LOWER THORAX:Unremarkable. HEPATOBILIARY: Right hepatic lobe 6.5 cm mass with peripheral nodular enhancement. No intra-or extrahepatic biliary ductal dilation. The gallbladder is normal. SPLEEN: No splenomegaly. PANCREAS: No focal masses or ductal dilatation. ADRENALS: No adrenal nodules. KIDNEYS/URETERS: 10 cm superior left renal cyst with single septation anteriorly. 3.7 cm interpolar left renal cyst. Right kidney unremarkable. No solid mass lesions. PELVIC ORGANS/BLADDER: The bladder is normal. PERITONEUM/RETROPERITONEUM: No free air or fluid. LYMPH NODES: No intra-abdominal, retroperitoneal, pelvic or inguinal lymphadenopathy. VESSELS: The celiac trunk,superior and inferior mesenteric and bilateral renal arteries are patent The portal, superior mesenteric and splenic veins are patent. GI TRACT: Focal colonic thickening of the descending colon axial image 52 with adjacent stranding. BONES AND SOFT TISSUE: No bony destructive lesions. No soft tissue abnormalities. IMPRESSION: Colitis involving the descending colon. 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 Left renal cysts, largest 10 cm with single thin septation. Signed by: Dr. Sherif Mackay M.D. on 11/27/2018 6:20 PM Dictated By: SHERIF MACKAY MD 19 Transcribed By: JAMEY on 11/27/181819 COPY TO: MITCHELL ESTRADA MD
[2018-12-04] MEDS ORDERED: DIATRIZOATE MEGL/DIATRIZOA SOD 30 ML BTL PO ONE (23:59)
[2018-12-05 00:27] LABS: BASOPHILS % 0.3 % (0.0-1.0); EOSINOPHILS # (AUTO) 0.2 (0.0-0.4); EOSINOPHILS % 2.8 % (0.0-6.0); HEMATOCRIT 42.2 % (34.2-44.1); HEMOGLOBIN 13.5 g/dL (12.0-16.0); LYMPHOCYTES # (AUTO) 1.5 (1.0-3.2); LYMPHOCYTES % 23.3 % (18.0-39.1); MEAN CORPUSCULAR HEMOGLOBIN 27.8 pg (28-32); MONOCYTES # (AUTO) 0.3 (0.2-0.8); MONOCYTES % 5.4 % (4.4-11.3); NEUTROPHILS # (AUTO) 4.3 (2.1-6.9); PLATELET COUNT 208 x10e3/uL (140-360); RED BLOOD COUNT 4.85 x10e6/uL (3.6-5.1); RED CELL DISTRIBUTION WIDTH 13.5 % (11.7-14.4)
[2018-12-05 00:32] LABS: INR 0.96; PARTIAL THROMBOPLASTIN TIME 24.2 seconds (23.8-35.5); PROTHROMBIN TIME 13.3 seconds (11.9-14.5)
[2018-12-05 00:33] LABS: BILIRUBIN,URINE NEGATIVE (NEGATIVE); CLARITY,URINE CLEAR (CLEAR); COLOR,URINE YELLOW (YELLOW); KETONES,URINE NEGATIVE (NEGATIVE); LEUKOCYTE ESTERASE ,URINE 1+ (NEGATIVE); NITRITE,URINE NEGATIVE (NEGATIVE); PROTEIN,URINE DIPSTICK NEGATIVE (NEGATIVE); URINE UROBILINOGEN 0.2 mg/dL (0.2 - 1)
[2018-12-05 00:42] LABS: ALBUMIN/GLOBULIN RATIO 1.3 (0.8-2.0); ANION GAP 12.8 mmol/L (8-16); CREATININE, SERUM 1.21 mg/dL (0.57-1.11); POTASSIUM 3.8 mmol/L (3.5-5.1)
[2018-12-05] MEDS ORDERED: ONDANSETRON HCL INJ 2MG/ML 2ML 2 MG/ML VIAL IV STA (00:52)
[2018-12-05 00:53] LABS: BACTERIA,URINE FEW /HPF; EPITHELIAL CELLS,URINE FEW /LPF; RBC,URINE 0-5 /HPF (0-5)
[2018-12-05] MEDS: MORPHINE SULFATE INJ 4 MG/ML INJ 1ML IV PRN (01:06)
[2018-12-05] MEDS ORDERED: SODIUM CHLORIDE 0.9% 1000ML 1,000 ML IV ONE (01:15)
[2018-12-05] MEDS ORDERED: SODIUM CHLORIDE 0.9% 50ML 50 ML ONE (01:19)
[2018-12-05] MEDS ORDERED: IOPAMIDOL 370 MG/ML 200 ML INFUS..BTL INJ ONE (01:19)
--- NOTE | 2018-12-05 02:49 | Diagnostic Imaging Report ---
EXAM: CT Abdomen and Pelvis WITH contrast INDICATION: abd pain ^Y COMPARISON: CT abdomen and pelvis 11/27/2018 TECHNIQUE: Abdomen and pelvis were scanned utilizing a multidetector helical scanner from the lung base to the pubic symphysis after administration of IV contrast. Coronal and sagittal reformations were obtained. Routine protocol was performed. Scan was performed when during portal venous phase. IV CONTRAST: 100 mL of Isovue-300 ORAL CONTRAST: Gastrografin COMPLICATIONS: None RADIATION DOSE: Total DLP: 666.9 mGy*cm Estimated effective dose: (DLP x 0.015 x size factor) mSv Dose modulation, iterative reconstruction, and/or weight based adjustment of the mA/kV was utilized to reduce the radiation dose to as low as reasonably achievable. FINDINGS: LINES and TUBES: None. LOWER THORAX:Unremarkable. HEPATOBILIARY: Right hepatic lobe 6.5 cm mass with peripheral nodular enhancement. No intra-or extrahepatic biliary ductal dilation. The gallbladder is normal. SPLEEN: No splenomegaly. PANCREAS: No focal masses or ductal dilatation. ADRENALS: No adrenal nodules. KIDNEYS/URETERS: 10 cm superior left renal cyst with single septation anteriorly. 3.7 cm interpolar left renal cyst. Right kidney unremarkable. No solid mass lesions. PELVIC ORGANS/BLADDER: The bladder is normal. PERITONEUM/RETROPERITONEUM: No free air or fluid. LYMPH NODES: No intra-abdominal, retroperitoneal, pelvic or inguinal lymphadenopathy. VESSELS: The celiac trunk,superior and inferior mesenteric and bilateral renal arteries are patent The portal, superior mesenteric and splenic veins are patent. GI TRACT: Near complete resolution of colitis involving the descending colon. There is dilated small bowel with mesenteric stranding (coronal image 33) in the mid abdomen. Enteric contrast appears to become dilute in this segment with fecalization seen more distally. The small bowel beyond the fecalized segment appears relatively collapsed. BONES AND SOFT TISSUE: No bony destructive lesions. No soft tissue abnormalities. IMPRESSION: Near complete resolution of colitis involving the descending colon. Findings concerning for small bowel obstruction with associated stasis and dilution of enteric contrast and mesenteric edema. 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 Left renal cysts, largest 10 cm with single thin septation. Signed by: DR. Tucker Webb MD on 12/05/2018 2:46 AM
[2018-12-05] MEDS ORDERED: BENZOCAINE/TETRACAINE/BUTAMBEN AERO SPRAY 56 GM CAN ONE (03:27)
[2018-12-05] MEDS ORDERED: BENZOCAINE/TETRACAINE/BUTAMBEN AERO SPRAY 56 GM CAN TOP ONE (03:30)
[2018-12-05] MEDS ORDERED: HYDROMORPHONE 2MG/ML 2 MG/ML ML ONE ×2 (03:37→06:51)
[2018-12-05] MEDS: LEVOFLOXACIN 500MG/D5W 100ML IV SCH (03:45)
[2018-12-05] MEDS: HYDROMORPHONE 1MG/1ML INJ IV PRN ×2 (03:50→06:55)
[2018-12-05] MEDS: SODIUM CHLORIDE 0.9% 1000ML 1,000 ML IV SCH ×2 (03:50→11:23)
--- NOTE | 2018-12-05 04:00 | NUR ---
14F NG TUBE INSERTED TO RT NARE AT THIS TIME, PT TOLERATED WELL. PT PLACED ON LWS, APPROX 200CC YELLOW/BROWN FECAL LIQUID ASPIRATE IN SUCTION CANISTER. NOTIFIED.
[2018-12-05] MEDS: METRONIDAZOLE 500MG/NS 100ML IV SCH ×3 (06:12→18:22)
[2018-12-05] MEDS: ONDANSETRON HCL INJ 2MG/ML 2ML 2 MG/ML VIAL IV PRN ×4 (06:55→18:46)
[2018-12-05] MEDS: PANTOPRAZOLE 40 MG 10ML VIAL IV SCH (08:55)
[2018-12-05] MEDS: HYDROMORPHONE 2MG/ML 2 MG/ML ML IV PRN ×3 (10:42→18:46)
--- NOTE | 2018-12-05 13:12 | Consultation ---
DATE OF CONSULTATION: 12/05/2018 CHIEF COMPLAINT: Abdominal pain. HISTORY OF PRESENT ILLNESS: The patient is a 58-year-old female with 2-day history of pain in the epigastric periumbilical area, which is discontinuous in nature with associated vomiting. No hematemesis. The patient denied fever, chills, or diarrhea. She has not been passing any flatus. She had a history of recent colitis in November of this year, which has resolved prior to this episode. PAST MEDICAL HISTORY: Positive for atrial fibrillation, seizure disorder, and hypertension. PAST SURGICAL HISTORY: Unremarkable except for procedure for cervical atypia. ALLERGIES: THE PATIENT IS ALLERGIC TO METAXALONE. SOCIAL HISTORY: With no history of smoking or alcohol abuse. REVIEW OF SYSTEMS: No chest pain, shortness of breath, or cough. PHYSICAL EXAMINATION: VITAL SIGNS: Stable and afebrile. GENERAL: She is awake, alert, in mild discomfort. HEENT: Sclera anicteric. NECK: Supple. LUNGS: Clear. HEART: Regular rate and rhythm. ABDOMEN: Soft with guarding and tenderness in epigastrium. No rebound. EXTREMITIES: Without cyanosis or edema. LABORATORY DATA: White cell count of 6, hemoglobin of 13. Creatinine of 1.2. Liver function tests within normal limits. INR of 0.9. Abdominal CT show evidence of dilated small bowel with mesenteric stranding in the mid abdomen concerning for small bowel obstruction. Resolution of prior colitis. ASSESSMENT: Abdominal pain with evidence of inflammatory changes in the mid small bowel with clinical obstruction. PLAN: NG tube has been inserted. Follow abdominal exam and x-ray daily. Heath Hess MD DNDevon/MODL /[id number]
--- NOTE | 2018-12-05 13:42 | NUR ---
History and Physical cc: BRBPR HPI: 58yoF, PCP , GI , Card , recently d/c after ischemic colitis, now with SBO. Pt was still completing antibiotics and other medications at home from recent ischemic colitis. PMH: epilepsy, A.fib s/p ablation in 2016, anxiety, BRBPR, Ischemic colitis 11/2018 PSHx: Ablation of a.fib in 2017, lumpectomy benign; loop recorder Allergies; see emr FH/SH: ; occ etoh; no cigs; Meds; see MAR ROS: no f/c/s/n/V/D/LOCKWOOD/vision changes/back pain/skin rash v/s rev'd PE tired appearing anicteric ns1s2 mod bs soft; epigastrium tender; no e/t skin dry n. affect labs/meds re'vd A/P: 58yoF SBO Ischemic colitis Mild Anemia MATT Obesity BMI 31.6 Anxiety d/o Epilepsy PLAN IV ppi/fluids/antibiotics GI/Sx consult NPO Neuro for mgmt of epilepsy meds SCD; ppi Aydin Cuellar MD, PhD.
[2018-12-05 20:00] VITALS: BP 152/72
--- NOTE | 2018-12-05 20:00 | NUR ---
PT ARRIVED ON THE UNIT VIA STRETCHER AT 1939. PT IS A&OX3. RESPIRATION IS EVEN AND UNLABORED, NO DISTRESS NOTED. BED IN THE LOWEST POSITION, LOCKED, AND CALL LIGHT WITHIN REACH. ADMISSION AND HEAD TO TOE ASSESSMENT COMPLETE. WILL CONTINUE TO MONITOR.
[2018-12-05 23:50] VITALS: BP 130/81
[2018-12-05 23:55] VITALS: BP 130/81
[2018-12-06] VITALS (9 sets, daily range): BP systolic 132–164; BP diastolic 67–85
[2018-12-06] MEDS: HYDROMORPHONE 2MG/ML 2 MG/ML ML IV PRN ×2 (00:23→04:54)
[2018-12-06] MEDS: ONDANSETRON HCL INJ 2MG/ML 2ML 2 MG/ML VIAL IV PRN ×2 (00:23→04:54)
[2018-12-06] MEDS: SODIUM CHLORIDE 0.9% 1000ML 1,000 ML IV SCH ×3 (00:23→12:46)
[2018-12-06] MEDS: METRONIDAZOLE 500MG/NS 100ML IV SCH ×4 (00:23→17:14)
[2018-12-06] MEDS: LEVOFLOXACIN 500MG/D5W 100ML IV SCH (03:17)
--- NOTE | 2018-12-06 04:25 | Consultation ---
DATE OF CONSULTATION: 12/05/2018 GI Consultation Note. REASON FOR CONSULT: Idiopathic small-bowel obstruction. HISTORY OF PRESENTING ILLNESS: A 58-year-old white female, who got admitted with history of nausea, vomiting, epigastric and periumbilical pain. CT scan of the abdomen showed a small bowel obstruction. She has been seen and evaluated by Surgery. The patient is currently n.p.o., NG to low to intermittent wall suction, and she is also getting IV fluids. She apparently has had episode of colitis about a week ago. She was seen by my associate, Dr. Garrido at that time. As the patient has had a colonoscopy also. The patient has no known history of inflammatory bowel disease. She has no history of any abdominal surgeries in the past. No extra abdominal complaints. REVIEW OF SYSTEMS: Twelve point system reviewed, symptomatology is limited to GI system. PAST MEDICAL HISTORY: Atrial fibrillation, seizure disorder, hypertension. PAST SURGICAL HISTORY: Recent colonoscopy. She has had a cervical cone biopsy for cervical atypia, this is documented in the chart. The patient did not tell me about this. FAMILY HISTORY: Noncontributory. Negative for any inflammatory bowel disease. SOCIAL HISTORY: No smoking, alcohol, or any illicit drug use. ALLERGIES: per chart HOME MEDICATIONS: Aspirin, vitamin D3, lamotrigine, lisinopril, metoprolol, paroxetine, topiramate. INPATIENT MEDICATION LIST: Reviewed. She is on intravenous levofloxacin as well as metronidazole along with other medications. PHYSICAL EXAMINATION: VITAL SIGNS: Temperature 97.8, pulse 56, respirations 17, blood pressure 139/84, oxygen saturation 99% on room air. GENERAL: Not in any acute distress. Oral mucosa is moist. Anicteric sclerae. NECK: No neck or axillary adenopathy. NG is in place. CVS: S1, S2 regular. LUNGS: Bilaterally grossly clear. ABDOMEN: Soft, nondistended. Mild lower quadrant tenderness on deep palpation without rebound, rigidity, or guarding. Positive bowel sounds. EXTREMITIES: Warm. No leg edema. LABS: Peripheral cell count normal, hemoglobin 13.5, hematocrit 42.2, platelet count 208, WBC 6.32. Sodium 144, potassium 3.8, chloride 111, bicarb 24, BUN 13, creatinine 1.21, glucose 86. Liver enzymes normal. PT 13.3, INR 0.96, PTT 24.2. Urinalysis, leukocyte esterase 1+, WBC [address] of the abdomen and pelvis with contrast on 12/05/2018 showed: 1. Near-complete resolution of colitis involving the descending colon. 2. Finding concerning for a small-bowel obstruction with associated and dilation of bowel and retained enteric contrast and mesenteric edema. 3. A 6.5 cm mass in the right hepatic lobe, likely giant hemangioma. 4. Left renal cyst, largest 10 cm with a single thin septation. IMPRESSION: Small bowel obstruction, cause unclear. No history of inflammatory bowel disease, no history of any abdominal surgeries. PLAN: Agree with current conservative management with NG tube, NG tube to low to intermittent wall suction, n.p.o., IV fluids, supportive care. Serial abdominal x-rays. Surgery is following the patient. If the patient's small bowel obstruction gets resolved with conservative management, then the patient needs to follow up in the GI office for further workup that may include CT enterography or upper GI series with small-bowel follow-through. I thank Dr. Romero for allowing me to participate in the care of this patient. Braxton Lopez MD SA/MARCELO /[id number]
--- NOTE | 2018-12-06 06:09 | Diagnostic Imaging Report ---
Exam: Abdominal film Clinical History: bowel obstruction Comparison: None. DISCUSSION: Frontal view of the abdomen shows a nonobstructive bowel gas pattern with mild amount of retained stool. No dilated, air-filled loops of bowel. No abnormal calcifications. No acute bone abnormality. Left renal cyst. Partially visualized left upper quadrant enteric tube. IMPRESSION: 1. Nonobstructive bowel gas pattern. Signed by: Dr. Miguel Beasley M.D. on 12/06/2018 6:06 AM
[2018-12-06 06:14] LABS: BASOPHILS % 0.5 % (0.0-1.0); EOSINOPHILS # (AUTO) 0.1 (0.0-0.4); EOSINOPHILS % 2.3 % (0.0-6.0); HEMATOCRIT 37.2 % (34.2-44.1); HEMOGLOBIN 11.9 g/dL (12.0-16.0); LYMPHOCYTES # (AUTO) 1.1 (1.0-3.2); LYMPHOCYTES % 19.8 % (18.0-39.1); MEAN CORPUSCULAR HEMOGLOBIN 28.3 pg (28-32); MEAN CORPUSCULAR VOLUME 88.6 fL (81-99); MONOCYTES # (AUTO) 0.3 (0.2-0.8); PLATELET COUNT 173 x10e3/uL (140-360); RED CELL DISTRIBUTION WIDTH 13.4 % (11.7-14.4)
[2018-12-06 06:43] LABS: ALANINE AMINOTRANSFERASE 27 IU/L (0-55); ALBUMIN 3.2 g/dL (3.5-5.0); ALBUMIN/GLOBULIN RATIO 1.3 (0.8-2.0); ALKALINE PHOSPHATASE 59 IU/L (40-150); ANION GAP 8.9 mmol/L (8-16); BLOOD UREA NITROGEN 12 mg/dL (7-26); BUN/CREATININE RATIO 14 (6-25); CALCIUM 8.5 mg/dL (8.4-10.2); CARBON DIOXIDE 23 mmol/L (22-29); CHLORIDE 110 mmol/L (98-107); CREATININE, SERUM 0.84 mg/dL (0.57-1.11); EST GLOMERULAR FILTRATION RATE > 60 ML/MIN (60-); GLUCOSE 74 mg/dL (74-118); POTASSIUM 3.9 mmol/L (3.5-5.1); SODIUM 138 mmol/L (136-145)
--- NOTE | 2018-12-06 07:12 | NUR ---
pt asleep resp even and unlabored at this time no distress noted, pt easily aroused, pt able to make need known, call light in reach. will cont to monitor.
--- NOTE | 2018-12-06 07:17 | NUR ---
IM- progress note O/N no events ROS: no f/c/s/n/V/D/LOCKWOOD/vision changes/back pain/skin rash v/s rev'd PE tired appearing; NGT in place anicteric ns1s2 mod bs soft; epigastrium tender; no e/t skin dry n. affect labs/meds re'vd A/P: 58yoF SBO Ischemic colitis Mild Anemia MADDIE Obesity BMI 31.6 Anxiety d/o Epilepsy PLAN IV ppi/fluids/antibiotics GI/Sx consult NPO Neuro for mgmt of epilepsy meds SCD; ppi 4/2 Maddie improving; cont abx; PT consult; d/c levaquin, as lowers seizure threshold; use cefepime; d/w nursing to call neuro for IV seizure med substitute. Ambulate in hallway. Aydin Cuellar MD, PhD.
[2018-12-06] MEDS: CEFEPIME 1GM/NS 0.9% 50 ML 50 ML IV SCH (08:49)
[2018-12-06] MEDS: PANTOPRAZOLE 40 MG 10ML VIAL IV SCH (08:49)
--- NOTE | 2018-12-06 10:38 | NUR ---
CASE MANAGEMENT INITIAL ASSESSMENT [employer] to bedside to discuss plan of care with patient/family. CM/SW role and care transitions discussed. Anticipated discharge plan discussed along with duration of care. CM/SW discussed patients right to make decisions in care. CM/SW work hours given. Patient lives: ALONE IN A 1 STORY HOME. FAMILY / FRIEND AVAILABLE IF NEEDED TO ASSIST PT. Admit/Transfer: VIA ER Hospital/ER visits since last admit: ADMITTED LAST WEEK W GI BLEED POA/Emergency contact: NIRMAL MEDINA / DTR. [phone] Current/Previous Home Health: NONE PCP/Follow-up Care: MARGY GORMAN MD NEVER MADE F/U APPOINTMENT DUE TO READMISSION; WAS 2WEEKS POST DC. Current/Previous DME: NONE Medications (referring to index hospitalization or the first time you were in the hospital) a. Were changes made in your medications when you were in the hospital on [date of index hospitalization]? Yes b. Did you understand the changes? Yes c. Were you able to obtain your new medications right away? Yes d. Were you able to take your medications like the doctor wanted you to? Yes e. Did the hospital give you an accurate, easy to understand list of medications when you left? Yes Scale of 1-10 how comfortable does patient feel with disease management in outpatient settin Other Services: NONE Employment Status: EMPLOYED IN AN ADMINISTRATIVE ROLE Areas of Concerns: NEEDS SZ MEDICATION; TAKE LAMICTAL AT HOME. INFORMED PHENYTOIN WAS ORDERED TO BE GIVEN VIA NGT. INFORMED BEDSIDE NURSE OF THIS. Referral Needs: NONE Education Needs: EDUCATED WHY DILANTIN IS BEING USED. VERBALIZED SHE HAD A MILD H/A. ENCOURAGED PT TO TAKE SOMETHING FOR THE H/A. AGREED. DISCUSSED W BEDSIDE NURSE; MARIELLE. SHE WILL GIVE SZ MED AND TYLENOL. IMM/MARSHALL given and signed (if applicable): N/A Goal for discharge: TRANSITION HOME SAFELY CM/SW left business card at the bedside with contact information. Name and number was also written on the patients whiteboard. Patient verbalized understanding of discussion. CM will follow-up with ongoing discharge and transition of care needs.
[2018-12-06] MEDS: MORPHINE SULFATE INJ 4 MG/ML INJ 1ML IV PRN (10:52)
[2018-12-06] MEDS ORDERED: PHENYTOIN 100 MG/4 ML CUP NG SCH (14:00)
--- NOTE | 2018-12-06 14:50 | NUR ---
Visit made by the Spiritual Care Department Pastoral Visitor, Martha Forrest. PV provided pastoral presence, prayer, hospitality, and supportive listening. Pastoral Visitor informed pt/family of the scope of [employer] and availability. EZRA PAULSON [facility] [employer] Spiritual Care Department O: [phone] Pager: [phone] ([phone] number calling from)
[2018-12-06] MEDS ORDERED: HYDROCORTISONE 2.5% CREAM 30GM TUBE TOP PRN (15:15)
--- NOTE | 2018-12-06 19:20 | NUR ---
PT IS RESTING IN THE BED WITH AT BEDSIDE. RESPIRATION IS EVEN AND UNLABORED, NO DISTRESS NOTED. BED IN THE LOWEST POSITION, LOCKED, AND CALL LIGHT WITHIN REACH. WILL CONTINUE TO MONITOR.
--- NOTE | 2018-12-06 19:23 | NUR ---
report given to oncoming nurse for continued care
--- NOTE | 2018-12-06 23:54 | Consultation ---
DATE OF CONSULTATION: 12/06/2018 Neurology Consult Note HISTORY OF PRESENT ILLNESS: Ms. Guan is a 58-year-old right-hand dominant woman with past medical history significant for epilepsy, admitted to [facility] on December 05, 2018, with abdominal pain, abdominal distention, and nausea. Ms. Guan's symptoms were found to be due to a small bowel obstruction. As treatment for her small bowel obstruction, the patient is not allowed to take anything by mouth. Ms. Guan has a history of epilepsy, reportedly well controlled with lamotrigine 300 mg by mouth twice daily and topiramate 150 mg by mouth twice daily. Unfortunately, neither of these medications is available in intravenous form. Therefore, the Neurology service is consulted for management of the patient's epilepsy/antiepileptic medications until she is once again able to tolerate PO and resume treatment with her home medications. REVIEW OF SYSTEMS: Epigastric abdominal pain, abdominal distention, and nausea. Otherwise, a 12- point review of systems is negative. PAST MEDICAL HISTORY: Hypertension, coronary artery disease, migraines, and epilepsy. PAST SURGICAL HISTORY: "Cervical surgery," bilateral breast lumpectomies x3, and section. PAST HOSPITALIZATIONS: Surgeries/procedures as listed, childbirth. FAMILY MEDICAL HISTORY: Diabetes mellitus. SOCIAL HISTORY: Ms. Guan is . She reports she is unemployed at this time. The patient does not report current or prior tobacco, alcohol, or recreational drug use. HOME MEDICATIONS: Aspirin 81 mg by mouth daily, lisinopril 20 mg by mouth daily, metoprolol 50 mg by mouth daily, lamotrigine 300 mg by mouth twice daily, topiramate 150 mg by mouth twice daily, paroxetine 10 mg by mouth daily, and vitamin D3 of 2000 units by mouth daily. HOSPITAL MEDICATIONS: Metronidazole 500 mg intravenously every 6 hours, sodium chloride 1000 mL at 125 mL/h intravenously every 8 hours, morphine sulfate 2 mg IV as needed for severe pain, cefepime intravenously every 24 hours, Protonix 40 mg intravenously daily, Dilaudid 1 mg every 4 hours as needed for severe pain, Zofran 4 mg every 4 hours intravenously as needed for nausea, hydrocortisone cream apply to affected area three times daily as needed for itching. ALLERGIES: THE PATIENT REPORTS NO KNOWN DRUG ALLERGIES. HOWEVER, HER ELECTRONIC MEDICAL RECORD LISTED AN ALLERGY TO METAXALONE. NO KNOWN FOOD ALLERGIES. NO KNOWN ALLERGIES TO LATEX. NO KNOWN ALLERGIES TO IODINE OR OTHER CONTRAST MATERIALS. PHYSICAL EXAMINATION: VITAL SIGNS: Height 67 inches, weight 196 pounds, BMI 30.7 kg/m2, blood pressure 155/85 mmHg, pulse 65 beats per minute, respiratory rate 18 breaths per minute, and oxygen saturation 99% on room air. GENERAL: The patient is awake and alert, does not appear distressed. Overweight. HEENT: Normocephalic and atraumatic. Pupils are equal, round, and reactive to light. Moist mucous membranes. NECK: Supple. No appreciable thyromegaly. No appreciable carotid bruits. CARDIOVASCULAR: S1, S2, regular rate and rhythm. No murmurs, rubs, or gallops. RESPIRATORY: Clear to auscultation bilaterally. No wheezes, rhonchi, or rales. EXTREMITIES: The skin is warm and dry. No clubbing, cyanosis, or edema. The posterior tibial and dorsalis pedis pulses are 2+ and symmetric. SKIN: There is an erythematous maculopapular rash around the neck, along the middle of the back, the medial upper arms, and thighs. NEUROLOGIC: Memory/Attention: The patient is awake and alert, oriented to person, place, time, and situation. Cranial Nerves: Cranial nerve I - not tested. Cranial nerves II, III, IV, and - pupils are equal and round, react briskly to light (from 4 mm to 2 mm). Extraocular movements intact. No nystagmus. Cranial nerve V - sensation to light touch and pinprick is intact in the bilateral V1 through V3 distributions. Strength in the temporalis and masseter muscles are within normal limits. Cranial nerve VII - the face is symmetric as are all facial movements. Strength is within normal limits. Cranial nerve VIII - hearing is intact to finger rub bilaterally. Cranial nerves IX, X - the soft palate elevates equally and symmetrically. Cranial nerve XI - normal strength of the bilateral sternocleidomastoid and trapezius muscles. Cranial nerve XII - the tongue protrudes midline and moves symmetrically from [id number]. Strength: Bulk is normal. Strength is 5/5 in the bilateral deltoids, biceps, triceps, wrist flexors and extensors, finger flexors and extensors, intrinsic hand muscles, hip flexors, knee flexors and extensors, ankle dorsiflexion and plantar flexion, and intrinsic foot muscles. Tone is normal. DTRs: Deep tendon reflexes are 1+ and symmetric at the triceps, biceps, brachioradialis, patellas, and Achilles. Plantar responses are flexor bilaterally. Sensation: Sensation is intact to light touch and pinprick in both arms and both legs. Cerebellar: Csjuge-aidr-iwanhm and heel-hernandez movements are intact without dysmetria or other impairment. Gait: Deferred. Speech: Spontaneous speech is normal without appreciable dysarthria or aphasia. Repetition is intact. Involuntary Movements: None. Pronator Drift: None. LABORATORY DATA: A comprehensive metabolic panel is significant for an elevated chloride of 110, low total protein of 5.7, and low albumin of 3.2. Amylase 38. Lipase 19. The CBC with differential and platelets reveals a white blood cell count of 5.62 with a normal differential. The hemoglobin and hematocrit are 11.9 and 37.2, respectively. The platelet count is 173. The coagulation profile is within normal limits. A urinalysis is significant for specific gravity of 1.000, 1+ leukocyte esterase, and 6 to 10 white blood cells. DIAGNOSTIC STUDIES: Electrocardiogram on 12/04/2018: Normal sinus rhythm at [address] abdomen and pelvis on 12/04/2018: Near-complete resolution of colitis involving the descending colon. Findings concerning for small bowel obstruction with associated stasis and dilution of enteric contrast and mesenteric edema. 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 Left renal cysts, largest 10 cm with single thin septation. Abdomen x-ray on 12/06/2018: Nonobstructive bowel gas pattern. ASSESSMENT AND PLAN: Ms. Guan is a 58-year-old right-hand dominant woman with past medical history significant for epilepsy, well controlled with her home medications of lamotrigine and topiramate, admitted to [facility] on December 05, 2018, with a small-bowel obstruction. The patient's neurological examination is nonfocal. Her laboratory data and other diagnostic studies have been reviewed and are documented above. Due to the presence of a small bowel obstruction, Ms. Guan is not allowed to take anything by mouth, including her home antiepileptic medications. The Neurology service is asked to manage the patient's epilepsy/antiepileptic medications until she is able to resume oral intake. RECOMMENDATIONS: Are as follows: 1. Ms. Guan has received a loading dose of fosphenytoin 20 mg/kg intravenously once. 2. A phenytoin level will be drawn with the morning labs on December 08, 2018. 3. Ms. Guan will be re-evaluated on December 07, 2018. If she is able to tolerate PO, treatment with her home medications of lamotrigine and topiramate will be resumed. If not, she will be treated with phenytoin 300 mg intravenously at bedtime until she is able to resume treatment with her home medications. 4. Rash - in my opinion, the patient's rash is not compatible with a drug rash, which is expected to be more diffuse. The patient's rash is in the distribution of her hospital gown, leading me to suspect the skin irritation is in response to a prior cues to launder the hospital linens. 5. Defer treatment of the remaining medical comorbidities to the primary and other services following the patient. Thank you for this consultation. I will continue to follow the patient, while she remains in the hospital. TIME SPENT: 50 minutes. Maribell Roberts MD CP/MARCELO /[id number]
--- NOTE | 2018-12-06 23:56 | NUR ---
ASSISTED PT TO THE BATHROOM. BED ALARM GOING OFF IN ANOTHER PT'S ROOM. TOLD THE PT TO PULL THE RED STRING WHEN SHE WAS DONE. LEFT THE PT IN THE BATHROOM AND WENT TO ASSIST THE OTHER PT. UPON ENTERING THE ROOM, I FOUND THE PT ON HER RIGHT SIDE HAVING A SEIZURE. ASHLYN DENNIS LIZZY, AND I PLACE THE PT BACK IN BED. A RAPID WAS CALLED. VITAL WERE TAKEN, BLOOD SUGAR TEST DONE, TELE ORDERED, AND CT OF BRAIN ORDERED. PT HAS A SMALL BUMP ON HER HEAD. WILL CONTINUE TO MONITOR.
[2018-12-07] VITALS (9 sets, daily range): BP systolic 121–142; BP diastolic 65–81
--- NOTE | 2018-12-07 00:09 | NUR ---
PAGE DR YAN TO NOTIFY HIM OF PT SEIZURE AND FALL. AWAITING CALL BACK.
--- NOTE | 2018-12-07 00:45 | Diagnostic Imaging Report ---
EXAMINATION: Head CT without contrast. HISTORY:Seizure, fall. COMPARISON:None. TECHNIQUE: Multidetector axial images were obtained from the foramen magnum to the vertex without contrast. The images were reconstructed using brain and bone algorithms. Thin section brain images were reformatted into coronal and sagittal planes. Dose modulation, iterative reconstruction, and/or weight based adjustment of the mA/kV was utilized to reduce the radiation dose to as low as reasonably achievable. Intravenous contrast: None IMAGE QUALITY: Acceptable. FINDINGS: Skull/scalp: Moderate right parieto-occipital scalp edema/hematoma. No soft tissue emphysema or radiopaque foreign body. No acute depressed or displaced calvarial fracture. Parenchyma: No abnormal density. No acute hemorrhage, mass or acute major vascular territorial infarct. Arteries: No density suggestive of thrombosis. Dural sinuses: No abnormal density suggestive of thrombosis. Ventricles: No hydrocephalus or displacement. Extra-axial spaces: No abnormal density. Brain volume: Normal for age. Craniocervical junction: No mass, Chiari malformation, or basilar invagination. Sella: No mass. Paranasal/mastoid sinuses: Near complete opacification of right sphenoid sinus and mild mucosal thickening without fluid level in left sphenoid sinus. IMPRESSION: 1. Moderate right parietal occipital scalp edema/hematoma. No acute fracture. 2. No acute posttraumatic intracranial abnormality. Signed by: Dr. Halle Melendez M.D. on 12/07/2018 12:42 AM
--- NOTE | 2018-12-07 00:49 | NUR ---
PAGE DR YAN AGAIN. AWAITING CALL BACK
[2018-12-07] MEDS: METRONIDAZOLE 500MG/NS 100ML IV SCH ×5 (01:04→23:44)
--- NOTE | 2018-12-07 01:13 | NUR ---
SPOKE TO DR YAN AND NOTIFIED HIM OF PT FALL. NO NEW ORDER RECEIVED. WILL CONTINUE TO MONITOR.
--- NOTE | 2018-12-07 01:31 | NUR ---
NOTIFY PT SON EFRA OF FALL. WILL CONTINUE TO MONITOR.
[2018-12-07] MEDS: SODIUM CHLORIDE 0.9% 1000ML 1,000 ML IV SCH ×3 (03:05→19:05)
[2018-12-07] MEDS: ONDANSETRON HCL INJ 2MG/ML 2ML 2 MG/ML VIAL IV PRN ×2 (06:12→21:39)
[2018-12-07] MEDS: HYDROMORPHONE 2MG/ML 2 MG/ML ML IV PRN ×3 (06:12→21:39)
--- NOTE | 2018-12-07 07:02 | NUR ---
WALING ROUNDS DONE WITH INCOMING RN. NO RESPIRATORY DISTRESS NOTED. BED IN THE LOWEST POSITION, LOCKED, BED ALARM ON, AND CALL LIGHT WITHIN REACH.
--- NOTE | 2018-12-07 07:30 | NUR ---
RECD PT IN BED AWAKE,C/O PAIN LEVEL 3 TO HEAD ,MEDICATED EARLIER,NGT IN PLACE CLAMPED,NO C/O NAUSEA OR VOMITING
--- NOTE | 2018-12-07 07:54 | NUR ---
IM- progress note O/N no events ROS: no f/c/s/n/V/D/LOCKWOOD/vision changes/back pain/skin rash v/s rev'd PE tired appearing; NGT in place anicteric ns1s2 mod bs soft; epigastrium tender; no e/t skin dry n. affect labs/meds re'vd A/P: 58yoF SBO Ischemic colitis Mild Anemia MADDIE Obesity BMI 31.6 Anxiety d/o Epilepsy PLAN IV ppi/fluids/antibiotics GI/Sx consult NPO Neuro for mgmt of epilepsy meds SCD; ppi 4/2 Maddie improving; cont abx; PT consult; d/c levaquin, as lowers seizure threshold; use cefepime; d/w nursing to call neuro for IV seizure med substitute. Ambulate in hallway. 4/3 reaction to dilantin? start oral antiSz meds from home when able Aydin Cuellar MD, PhD.
[2018-12-07] MEDS: PANTOPRAZOLE 40 MG 10ML VIAL IV SCH (08:56)
[2018-12-07] MEDS: CEFEPIME 1GM/NS 0.9% 50 ML 50 ML IV SCH (08:56)
[2018-12-07] MEDS ORDERED: NON-FORMULARY MEDICATION (Cholecalciferol (Vitamin D3) (Vitamin D3) 2,000 UNITS) PO SCH (09:00)
[2018-12-07] MEDS ORDERED: NON-FORMULARY MEDICATION (Lamotrigine 300 MG) PO SCH (09:00)
--- NOTE | 2018-12-07 09:56 | NUR ---
TOLERATED CLEAR LIQUID WELL,NGT DCD ORDERED.
[2018-12-07] MEDS: ASPIRIN 81 MG CHEW TAB PO SCH (10:48)
[2018-12-07] MEDS: PAROXETINE HCL 20 MG TAB PO SCH (10:48)
[2018-12-07] MEDS: LISINOPRIL 20 MG TAB PO SCH (10:48)
[2018-12-07] MEDS: LAMOTRIGINE 100 MG TAB PO SCH ×2 (10:48→20:08)
[2018-12-07] MEDS: METOPROLOL SUCCINATE 50 MG TAB XL PO SCH (10:49)
[2018-12-07] MEDS: TOPIRAMATE 100 MG TAB PO SCH ×2 (10:49→16:26)
[2018-12-07] MEDS: CHOLECALCIFEROL 1,000 UNIT TAB PO SCH (10:50)
--- NOTE | 2018-12-07 13:00 | NUR ---
PT C/O HEADACHE MEDICated
[2018-12-07] MEDS ORDERED: METHYLPREDNISOLONE SOD SUCC 40 MG/ML VIAL 1ML IV ONE (15:30)
--- NOTE | 2018-12-07 18:30 | Progress Note ---
DATE: 12/07/2018 SUBJECTIVE: The patient is having bowel movement, reports no abdominal pain. Tolerating clear liquid diets. No nausea or vomiting. REVIEW OF SYSTEMS: GENERAL: No fever or chills. CVS: No chest pain or palpitation. RESPIRATORY: No cough or expectoration. MEDICATIONS: Reviewed as per NOV. She is on intravenous cefepime and metronidazole along with other medications. PHYSICAL EXAMINATION: VITAL SIGNS: Temperature 97.4, pulse 72, respirations 20, blood pressure 134/81, and oxygen saturation 98% on room air. GENERAL: Not in any acute distress. HEENT: Oral mucosa is moist. Anicteric sclerae. CVS: S1 and S2 regular. LUNGS: Bilaterally grossly clear. ABDOMEN: Soft. Mild gaseous distention. Nontender. No palpable mass or hernia. Positive bowel sounds. EXTREMITIES: Warm. No leg edema. LABS: WBC 5.62, hemoglobin 11.9, hematocrit 37.2, MCV 88.6, and platelet count 173. Sodium 138, potassium 3.9, chloride 110, bicarb 23, BUN 12, creatinine 0.84. Liver enzymes normal. Abdominal x-ray on 12/06/2018 showed a nonobstructive bowel gas pattern. IMPRESSION: Small-bowel obstruction has resolved. Etiology unclear. The patient is being treated with intravenous antibiotic by the primary team. PLAN: From GI standpoint, diet can be advanced. The cause of SBO is not clear. No history of any inflammatory bowel disease. If the patient tolerates solid food with regular BM without having any nausea, vomiting, or abdominal pain, then she can be discharged home. Surgery also following the patient. The patient has my business card. She will follow me in the office in 1 to 2 weeks. Braxton Lopez MD SA/MARCELO /[id number]
--- NOTE | 2018-12-07 19:45 | NUR ---
Received report from charge nurse.
--- NOTE | 2018-12-07 22:00 | NUR ---
Patient c/o pain to head. Given pain meds as ordered by MD. Also given nausea meds.
--- NOTE | 2018-12-07 23:55 | NUR ---
Patient AAOx3. RA with good o2 sat. IV intact to left AC 20G with n/s at 100. SR up x2 and bed alarm.
[2018-12-08] VITALS (7 sets, daily range): BP systolic 95–150; BP diastolic 50–81
[2018-12-08] MEDS: SODIUM CHLORIDE 0.9% 1000ML 1,000 ML IV SCH ×3 (03:05→11:05)
--- NOTE | 2018-12-08 04:37 | NUR ---
Patient in bed resting quitly at this time. Continue monitor.
[2018-12-08] MEDS: METRONIDAZOLE 500MG/NS 100ML IV SCH ×3 (05:40→18:00)
--- NOTE | 2018-12-08 06:16 | NUR ---
Received report from AM nurse. walking rounds.
--- NOTE | 2018-12-08 07:30 | NUR ---
pt up in bed no distress ntoed denies pain,tele in place nsr.
[2018-12-08] MEDS: ASPIRIN 81 MG CHEW TAB PO SCH (08:56)
[2018-12-08] MEDS: PANTOPRAZOLE 40 MG 10ML VIAL IV SCH (08:56)
[2018-12-08] MEDS: PAROXETINE HCL 20 MG TAB PO SCH (08:57)
[2018-12-08] MEDS: LORATADINE 10 MG TAB PO SCH (08:57)
[2018-12-08] MEDS: LISINOPRIL 20 MG TAB PO SCH (08:57)
[2018-12-08] MEDS: TOPIRAMATE 100 MG TAB PO SCH ×2 (08:57→17:00)
[2018-12-08] MEDS: LAMOTRIGINE 100 MG TAB PO SCH ×2 (08:57→21:00)
[2018-12-08] MEDS: METOPROLOL SUCCINATE 50 MG TAB XL PO SCH (09:00)
[2018-12-08] MEDS: CEFEPIME 1GM/NS 0.9% 50 ML 50 ML IV SCH (09:00)
[2018-12-08] MEDS: CHOLECALCIFEROL 1,000 UNIT TAB PO SCH (09:01)
--- NOTE | 2018-12-08 09:30 | NUR ---
pt iv dcd due to leaking.restarted iv to rt w 20 gauge.
--- NOTE | 2018-12-08 10:34 | NUR ---
IM- progress note O/N no events ROS: no f/c/s/n/V/D/LOCKWOOD/vision changes/back pain/skin rash v/s rev'd PE tired appearing; NGT in place anicteric ns1s2 mod bs soft; epigastrium tender; no e/t skin dry n. affect labs/meds re'vd A/P: 58yoF SBO Ischemic colitis Mild Anemia MADDIE Obesity BMI 31.6 Anxiety d/o Epilepsy PLAN IV ppi/fluids/antibiotics GI/Sx consult NPO Neuro for mgmt of epilepsy meds SCD; ppi 4/2 Maddie improving; cont abx; PT consult; d/c levaquin, as lowers seizure threshold; use cefepime; d/w nursing to call neuro for IV seizure med substitute. Ambulate in hallway. 4/3 reaction to dilantin? start oral antiSz meds from home when able 4/4 NGT out; on CLD; doing ok; cont care; d/c planning; reduce fluids. Aydin Cuellar MD, PhD.
--- NOTE | 2018-12-08 17:52 | NUR ---
PT UP IN BED ,DENIES PAIN,NO SEIZURE ACTIVITY NOTED.
[2018-12-09] VITALS (7 sets, daily range): BP systolic 119–143; BP diastolic 58–82
--- NOTE | 2018-12-09 00:22 | Progress Note ---
DATE: 12/08/2018 GI Progress Report. SUBJECTIVE: The patient reports no abdominal pain. Tolerating solid diet. She has not had any bowel movement today. However, she is passing flatus. REVIEW OF SYSTEMS: GENERAL: No fever or chills. CVS: No chest pain, palpitation. RESPIRATORY: No cough or expectoration. MEDICATIONS: Reviewed as per CRYSTAL. PHYSICAL EXAMINATION: VITAL SIGNS: Temperature 97.4, pulse 68, respiration 18, blood pressure 150/69, oxygen saturation 96% on room air. GENERAL: Not in any acute distress. HEENT: Oral mucosa is moist. Anicteric sclerae. NECK: No neck or axillary adenopathy. CVS: S1 and S2, regular. LUNGS: Bilaterally grossly clear. ABDOMEN: Soft, nondistended, nontender. No palpable mass or hernia. Positive bowel sounds. EXTREMITIES: Warm. No leg edema. LABORATORY DATA: None today. IMPRESSION: 1. Small bowel obstruction, etiology unclear, this has resolved. The patient is on intravenous antibiotic, which from GI standpoint can be discontinued. 2. Reviewed colon biopsy result, on colonoscopy performed last admission. This showed some ischemic changes, but no inflammatory colitis seen in pathology. PLAN: The patient can be discharged home from GI standpoint. I will follow her in my office within 1-2 weeks of discharge. She has my business card. Braxton Lopez MD SA/MARCELO /[id number]
[2018-12-09] MEDS: METRONIDAZOLE 500MG/NS 100ML IV SCH ×4 (06:00→18:37)
--- NOTE | 2018-12-09 06:12 | NUR ---
Patient resting quitly at this time, Continue monitor.
[2018-12-09 06:14] LABS: BASOPHILS % 0.4 % (0.0-1.0); EOSINOPHILS # (AUTO) 0.3 (0.0-0.4); EOSINOPHILS % 5.9 % (0.0-6.0); HEMATOCRIT 36.2 % (34.2-44.1); HEMOGLOBIN 11.5 g/dL (12.0-16.0); LYMPHOCYTES # (AUTO) 1.6 (1.0-3.2); LYMPHOCYTES % 29.3 % (18.0-39.1); MEAN CORPUSCULAR HGB CONC 31.8 g/dL (31-35); MEAN CORPUSCULAR VOLUME 88.3 fL (81-99); MONOCYTES # (AUTO) 0.4 (0.2-0.8); MONOCYTES % 6.8 % (4.4-11.3); NEUTROPHILS # (AUTO) 3.2 (2.1-6.9); NEUTROPHILS % 57.4 % (38.7-80.0); PLATELET COUNT 180 x10e3/uL (140-360)
[2018-12-09 06:41] LABS: BLOOD UREA NITROGEN 10 mg/dL (7-26); BUN/CREATININE RATIO 11 (6-25); CALCIUM 8.4 mg/dL (8.4-10.2); CARBON DIOXIDE 25 mmol/L (22-29); CHLORIDE 113 mmol/L (98-107); CREATININE, SERUM 0.89 mg/dL (0.57-1.11); EST GLOMERULAR FILTRATION RATE > 60 ML/MIN (60-); GLUCOSE 78 mg/dL (74-118); SODIUM 143 mmol/L (136-145)
--- NOTE | 2018-12-09 07:13 | NUR ---
PATIENT ASSISTED TO THE RESTROOM AND BACK TO BED. RASH ALL OVER THE BODY. DENIED PAIN AT THIS TIME. BED IN LOWER POSITION, CALL LIGHT AT REACH.
[2018-12-09] MEDS: CEFEPIME 1GM/NS 0.9% 50 ML 50 ML IV SCH (08:00)
[2018-12-09] MEDS: PANTOPRAZOLE 40 MG 10ML VIAL IV SCH (09:29)
[2018-12-09] MEDS: LAMOTRIGINE 100 MG TAB PO SCH (09:29)
[2018-12-09] MEDS: ASPIRIN 81 MG CHEW TAB PO SCH (09:29)
[2018-12-09] MEDS: LORATADINE 10 MG TAB PO SCH (09:29)
[2018-12-09] MEDS: PAROXETINE HCL 20 MG TAB PO SCH (09:30)
[2018-12-09] MEDS: LISINOPRIL 20 MG TAB PO SCH (09:30)
[2018-12-09] MEDS: TOPIRAMATE 100 MG TAB PO SCH ×2 (09:30→17:21)
[2018-12-09] MEDS: METOPROLOL SUCCINATE 50 MG TAB XL PO SCH (09:31)
[2018-12-09] MEDS: CHOLECALCIFEROL 1,000 UNIT TAB PO SCH (09:31)
--- NOTE | 2018-12-09 11:30 | NUR ---
PATIENT OUT OF BED TO CHAIR TALKING TO FAMILY MEMBER VISITING. RASH REMAINS TO ABDOMEN AND NECK, NO C/O ITCHING. CALL LIGHT AT REACH
--- NOTE | 2018-12-09 15:32 | NUR ---
PATIENT SITTING UP IN BED, NO COMPLAIN VOICED. CALL LIGHT AT REACH.
[2018-12-09] MEDS ORDERED: PANTOPRAZOLE SO40 MG PO (17:03)
[2018-12-09] MEDS ORDERED: SENNA LAX8.6 MG PO (17:03)
[2018-12-09] MEDS ORDERED: FLAGYL500 MG PO (17:03)
--- NOTE | 2018-12-09 17:05 | NUR ---
Discharge summary A/P: 58yoF SBO Ischemic colitis Mild Anemia MADDIE Obesity BMI 31.6 Anxiety d/o Epilepsy PLAN IV ppi/fluids/antibiotics GI/Sx consult NPO Neuro for mgmt of epilepsy meds SCD; ppi 4/2 Maddie improving; cont abx; PT consult; d/c levaquin, as lowers seizure threshold; use cefepime; d/w nursing to call neuro for IV seizure med substitute. Ambulate in hallway. / reaction to dilantin? start oral antiSz meds from home when able / NGT out; on CLD; doing ok; cont care; d/c planning; reduce fluids. d/c home f/u pcp 1 week and GI 2 weeks Stable d/c>35mins Aydin Cuellar MD, PhD.
--- NOTE | 2018-12-09 19:14 | NUR ---
PT IS RESTING IN THE BED WITH FAMILY AT BEDSIDE. RESPIRATION IS EVEN AND UNLABORED, NO DISTRESS NOTED. BED IN THE LOWEST POSITION, LOCKED, AND CALL LIGHT WITHIN REACH. WILL CONTINUE TO MONITOR.
--- NOTE | 2018-12-09 20:52 | NUR ---
PT AMBULATED WITH A STEADY GAIT OF THE UNIT WITH ALL OF HER BELONGS. NO RESPIRATORY DISTRESS NOTED. IV REMOVED WITH TIP INTACT AND SKIN INTACT.
--- NOTE | 2018-12-09 22:57 | Progress Note ---
DATE: 12/09/2018 GI Progress Report SUBJECTIVE: The patient reports no abdominal pain. Tolerating oral feeds. She has had two or three loose bowel movements today. Stool was noted to be soft and brown. REVIEW OF SYSTEMS: GENERAL: No fever or chills. CVS: No chest pain, palpitations. RESPIRATORY: No cough or expectoration. MEDICATIONS: Reviewed as per MAR. She is getting intravenous metronidazole and cefepime along with other medications. PHYSICAL EXAMINATION: VITAL SIGNS: Temperature 97.5, pulse 59, respirations 18, blood pressure 119/71, oxygen saturation 98% on room air. GENERAL: Not in any acute distress. Oral mucosa is moist. Anicteric sclerae. NECK: No neck or axillary adenopathy. CVS: S1, S2 regular. LUNGS: Bilaterally grossly clear. ABDOMEN: Soft, nondistended, nontender. No mass or hernia. Positive bowel sounds. LABORATORY DATA: WBC 5.57, hemoglobin 11.5, hematocrit 36.2, platelet count 180. Electrolytes normal. BUN 10, creatinine 0.89. IMPRESSION: 1. Small bowel obstruction, resolved. Etiology still unclear. The patient responded with intravenous antibiotic. resolved with conservative management. 2. The patient has had episode of colitis on last admission. Colon biopsies showed some ischemic changes, but no inflammatory colitis in pathology. PLAN: DC IV antibiotics, I do not think it is needed any further. The patient can go home from GI standpoint. She has my business card. She will follow up with me in the office next week. Braxton Lopez MD SA/MARCELO /[id number]
== END 2018-12-09 20:53 | disposition home or self-care (01) | DRG 389 ==
LOC: ER 23:28 → ERHOLD 12-05 03:10 → MED/SURG3 12-05 19:42
PROVIDERS: ADMIT Internal Medicine; ATTEND Internal Medicine
DX: K56.609 Unspecified intestinal obstruction, unspecified as to partial versus complete obstruction (principal); K55.9 Vascular disorder of intestine, unspecified; N17.9 Acute kidney failure, unspecified; D64.9 Anemia, unspecified; G40.909 Epilepsy, unspecified, not intractable, without status epilepticus; E66.9 Obesity, unspecified; Z68.31 Body mass index [BMI] 31.0-31.9, adult; R21 Rash and other nonspecific skin eruption; I48.91 Unspecified atrial fibrillation; I10 Essential (primary) hypertension
CPT/HCPCS: 31500; 36415; 70450; 74018; 74177; 80048; 80053; 80185; 81001; 82150; 82948; 83690; 85025; 85610; 85730; 93005; 96374; 96375; 99284; J0692; J1956; J2270; J2405; J2920; J7030; Q9967

== ENCOUNTER 2019-04-25 14:29 | Observation (INO) | payer OTHER ==
[2019-04-20 14:23] LABS: BASOPHILS % 0.8 % (0.0-1.0); EOSINOPHILS # (AUTO) 0.1 (0.0-0.4); EOSINOPHILS % 2.1 % (0.0-6.0); HEMOGLOBIN 12.9 g/dL (12.0-16.0); LYMPHOCYTES # (AUTO) 1.5 (1.0-3.2); LYMPHOCYTES % 27.7 % (18.0-39.1); MEAN CORPUSCULAR HGB CONC 32.3 g/dL (31-35); MONOCYTES # (AUTO) 0.3 (0.2-0.8); MONOCYTES % 6.1 % (4.4-11.3); NEUTROPHILS # (AUTO) 3.3 (2.1-6.9); NEUTROPHILS % 62.9 % (38.7-80.0); PLATELET COUNT 183 x10e3/uL (140-360); RED CELL DISTRIBUTION WIDTH 13.8 % (11.7-14.4)
[2019-04-20 14:41] LABS: ALBUMIN 3.9 g/dL (3.5-5.0); ALBUMIN/GLOBULIN RATIO 1.4 (0.8-2.0); ANION GAP 11.3 mmol/L (8-16); CALCIUM 9.2 mg/dL (8.4-10.2); CREATININE, SERUM 0.96 mg/dL (0.57-1.11); POTASSIUM 4.3 mmol/L (3.5-5.1)
[2019-04-25] VITALS (16 sets, daily range): BP systolic 123–164; BP diastolic 72–101
[~2019-04-25] VITALS: Ht 170.2 cm; Wt 86.6 kg
[~2019-04-25 14:29] MED LIST changes: +CAMBIA50 MG PO; +FLAGYL500 MG PO; +LORAZEPAM0.5 MG PO; +OMEPRAZOLE40 MG PO; +PANTOPRAZOLE SO40 MG PO; +SENNA LAX8.6 MG PO
--- OUTSIDE RECORDS SUMMARY | 2019-04-25 14:32 | XMS REPORT | Summary of Care ---
Author Author [facility] Organization [facility] Address Unknown Phone Unavailable Encounter SANNA Louise(DEX) [id number] Date(s): 03/17/19 - 03/17/19 [facility] [address] [place] [phone] Discharge Disposition: Home or Self Care Attending Physician: EVGENY GUILLAUME Referring Physician: EVGENY GUILLAUME Vital Signs No data available for this section Problem List Condition Effective Dates Status Health [...] remission(Confirmed) 11 Sciatica(Confirmed) Resolved 1Data migrated from [facility] on 09/23/15. The palpitations were from Afib. Originally documented as Atrial fibrillation. 2Data migrated from [facility] on 09/23/15. SE of TPM in higher dose. We will lower the dose. Originally documented as Antiepileptic adverse reaction, initial encounter. 3Data migrated from [facility] on 09/23/15. On Eliquis. Originally documented as Chronic atrial fibrillation. 4Data migrated from [facility] on 09/23/15. The fall does not appear to have caused harm. She does not need reevaluation. She has ongoing cardiac evaluation. Originally documented as Fall, initial encounter. 5Data migrated from [facility] on 09/23/15. Stable. Originally documented as Generalized anxiety disorder. 6Data migrated from [facility] on 09/23/15. The seizures are less prominent but still active. We have not been able to control them. Though she has very fabio l childhood epilepsy, the seizures are most controlled by her psychic state. Otis ginally documented as Generalized epilepsy, intractable. 7in heart 8Data migrated from [facility] on 09/23/15. Now developing late insomnia and crying typical of MDD. Originally documented as MDD (major depressive disorder). 9Data migrated from [facility] on 09/23/15. The patient s migraines have [...] Common migraine without intractability. 10Data migrated from [facility] on 09/23/15. Unclear etiology. Originally documented as Palpitations. 11Data migrated from [facility] on 09/23/15. Doing well. Originally documented as MDD (major depressive disorder), recurrent, in partial remission. Allergies, Adverse Reactions, Alerts Substance Reaction Severity Status metaxalone1 Active Skelaxin Active 1Data migrated from [facility] on 09/21/16. Originally documented as Skelaxin. Medications No data available for this section Results No data available for this section Immunizations No data available for this section Procedures Procedure Date Related Diagnosis Body Site Status Lumpectomy 1991 Completed Repair of cervix Completed Social History Social History Type Response Exercise Exercise type: Walking. Employment/School Status: Employed. Highest education level: High school. Alcohol Never Smoking Status Never smoker; Exposure to Tobacco Smoke None; Cigarette Smoking Last 365 Days No; Reg Smoking Cessation Counseling No entered on: 07/16/17 Assessment and Plan No data available for this section
--- OUTSIDE RECORDS SUMMARY | 2019-04-25 14:32 | XMS REPORT | Continuity of Care Document ---
Author Author [email or web address] Organization [email or web address] Address Unknown Phone Unavailable Care Team Providers Care Plant Etiologist Name Role Phone [employer] Information Exchange Unavailable Unavailable Problems Problem Status Onset Date Classification Date Reported Comments Source K Active 07/21/2017 [facility] Generalized epilepsy (disorder) Active 04/27/2016 Problem 03/19/2019 Data migrated from [employer] on 09/23/15. The seizures are less prominent but still active. We have not been able to control them. Though she has very real childhood epilepsy, the seizures are most controlled by her psychic state. Originally documented as Generalized epilepsy, intractable. [facility] Antiepileptic adverse reaction (disorder) Active 04/26/2016 Problem 03/19/2019 Data migrated from [employer] on 09/23/15. SE of TPM in higher dose. We will lower the dose. Originally documented as Antiepileptic adverse reaction, initial encounter. [facility] Chronic atrial fibrillation (disorder) Active 04/26/2016 Problem 03/19/2019 Data migrated from [employer] on 09/23/15. On Eliquis. Originally documented as Chronic atrial fibrillation. [facility] Fall (finding) Active 04/26/2016 Problem 03/19/2019 Data migrated from [employer] on 09/23/15. The fall does not appear to have caused harm. She does not need reevaluation. She has ongoing cardiac evaluation. Originally documented as Fall, initial encounter. [facility] Generalized anxiety disorder (disorder) Active 04/26/2016 Problem 03/19/2019 Data migrated from [employer] on 09/23/15. Stable. Originally documented as Generalized anxiety disorder. [facility] Migraine without aura, not refractory (disorder) Active 04/26/2016 Problem 03/19/2019 Data migrated from [employer] on 09/23/15. The patient s migraines have [...] Originally documented as Common migraine without intractability. [facility] Recurrent major depression in partial remission (disorder) Active 04/26/2016 Problem 03/19/2019 Data migrated from [employer] on 09/23/15. Doing well. Originally documented as MDD (major depressive disorder), recurrent, in partial remission. [facility] Atrial fibrillation (disorder) Active 05/18/2015 Problem 03/19/2019 Data migrated from [employer] on 09/23/15. The palpitations were from Afib. Originally documented as Atrial fibrillation. [facility] Major depressive disorder (disorder) Active 05/18/2015 Problem 03/19/2019 Data migrated from [employer] on 09/23/15. Now developing late insomnia and crying typical of MDD. Originally documented as MDD (major depressive disorder). [facility] SOB/ AFIB/ PALPATAIONS Active 06/22/2014 [facility] AFIB Active 06/21/2014 [facility] Palpitations (finding) Active 05/31/2014 Problem 03/19/2019 Data migrated from [employer] on 09/23/15. Unclear etiology. Originally documented as Palpitations. [facility] Congestive heart failure (disorder) Resolved Problem 03/19/2019 [facility] Epilepsy (disorder) Active Problem 03/19/2019 [facility] Gastroesophageal reflux disease (disorder) Active Problem 03/19/2019 [facility] History of - cardiovascular disease (context-dependent category) Resolved Problem 03/19/2019 in heart [facility] Hypertensive disorder, systemic arterial (disorder) Active Problem 03/19/2019 [facility] Migraine without aura (disorder) Active Problem 03/19/2019 [facility] Depressive disorder (disorder) Active Problem 03/19/2019 [facility] Obstructive sleep apnea syndrome (disorder) Active Problem 03/19/2019 [facility] Sciatica (disorder) Resolved Problem 03/19/2019 [facility] Intestinal obstruction Active Problem 12/10/2018 [facility] Lower gastrointestinal hemorrhage Active Problem 12/10/2018 [facility] Medications Medication Details Route Status Patient Instructions Ordering Provider Order Date Source Metronidazole (Flagyl) 500 Mg Tablet Three Times A Day Active [facility] 12/09/2018 [facility] Pantoprazole Sodium (Protonix) 40 Mg Tablet. Daily Active [facility] 12/09/2018 [facility] Sennosides (Senna Lax) 8.6 Mg Tablet Every 12 Hours Active [facility] 12/09/2018 [facility] Alprazolam 1 MG Oral Tablet [Xanax] 1 mg, Route: PO, Drug form: TAB, ONCE, Dosing Weight 99.091, kg, PRN Anxiety, Priority: NOW, Start date: 07/19/17 7:16:00 [employer] Inactive 07/19/2017 [facility] metoprolol tartrate 50 mg oral tablet 50 mg=1 tab, PO, Bedtime, 0 Refill(s) Active 07/16/2017 [facility] Vitamin D3 1000 intl units oral capsule 1,000 IntlUnit=1 cap, PO, Daily, # 100 cap, 0 Refill(s) Active 07/16/2017 [facility] Diclofenac Potassium 1.67 MG/ML Oral Solution [Cambia] =1 pkt, PO, Daily, PRN Severe Headache, mix in 30 to 60 mL of water, # 18 pkt, 0 Refill(s) Active 07/16/2017 [facility] Aspirin (Aspir 81) 81 Mg Tablet. Daily Active [facility] Cholecalciferol (Vitamin D3) (Vitamin D3) 2,000 Unit Tablet Daily Active [facility] Lamotrigine 150 Mg Tablet Twice A Day Active [facility] Lisinopril (Prinavil / Zestril) 20 Mg Tablet Daily Active [facility] Metoprolol Succinate 50 Mg Tab.er.24h Daily Active [facility] Paroxetine Hcl 20 Mg Tablet Daily Active [facility] Topiramate 100 Mg Tablet Twice A Day Active [facility] Allergies, Adverse Reactions, Alerts Substance Category Reaction Severity Reaction type Status Date Reported Comments Source metaxalone<sup>1</sup> Assertion Drug allergy Active 04/25/2013 Data migrated from [employer] on 09/21/16. Originally documented as Skelaxin. OPID Lex Metaxalone Intermediate Allergy to Substance Active 11/27/2018 [facility] Skelaxin Assertion Drug allergy Active [facility] Immunizations No Data Provided for This Section Results Order Name Results Value Reference Range Date Interpretation Comments Source Blood leukocytes automated count (number/volume) 5.57 4.8 - 10.8 12/09/2018 [facility] Blood erythrocytes automated count (number/volume) 4.10 3.6 - 5.1 12/09/2018 [facility] Blood hemoglobin measurement (moles/volume) 11.5 12.0 - 16.0 12/09/2018 [facility] Automated blood hematocrit (volume fraction) 36.2 34.2 - 44.1 12/09/2018 [facility] Automated erythrocyte mean corpuscular volume 88.3 81 - 99 12/09/2018 [facility] Automated erythrocyte mean corpuscular hemoglobin (mass per erythrocyte) 28.0 28 - 32 12/09/2018 [facility] Automated erythrocyte mean corpuscular hemoglobin concentration measurement (mass/volume) 31.8 31 - 35 12/09/2018 [facility] RDW BldCo-Rto 14.0 11.7 - 14.4 12/09/2018 [facility] Automated blood platelet count (count/volume) 180 140 - 360 12/09/2018 [facility] Automated blood segmented neutrophil count as percentage of total leukocytes 57.4 38.7 - 80.0 12/09/2018 [facility] Automated blood lymphocyte count as percentage ot total leukocytes 29.3 18.0 - 39.1 12/09/2018 [facility] Automated blood monocyte count as percentage of total leukocytes 6.8 4.4 - 11.3 12/09/2018 [facility] Automated blood eosinophil count as percentage of total leukocytes 5.9 0.0 - 6.0 12/09/2018 [facility] Automated blood basophil count as percentage of total leukocytes 0.4 0.0 - 1.0 12/09/2018 [facility] IM GRANULOCYTES % 0.2 0.0 - 1.0 12/09/2018 [facility] Automated blood neutrophil count 3.2 2.1 - 6.9 12/09/2018 [facility] Blood lymphocytes count (number/volume) 1.6 1.0 - 3.2 12/09/2018 [facility] Blood monocytes automated count (number/volume) 0.4 0.2 - 0.8 12/09/2018 [facility] Automated blood eosinophil count 0.3 0.0 - 0.4 12/09/2018 [facility] Automated blood basophil count (count/volume) 0.0 0.0 - 0.1 12/09/2018 [facility] Absolute Immature Granulocyte (auto 0.01 0 - 0.1 12/09/2018 [facility] Serum or plasma sodium measurement (moles/volume) 143 136 - 145 12/09/2018 [facility] Serum or plasma potassium measurement (moles/volume) 4.0 3.5 - 5.1 12/09/2018 [facility] Serum or plasma chloride measurement (moles/volume) 113 98 - 107 12/09/2018 [facility] Serum or plasma carbon dioxide, total measurement (moles/volume) 25 22 - 29 12/09/2018 [facility] Serum or plasma anion gap 9.0 8 - 16 12/09/2018 [facility] Serum or plasma urea nitrogen measurement (mass/volume) 10 7 - 26 12/09/2018 [facility] Serum or plasma creatinine measurement (mass/volume) 0.89 0.57 - 1.11 12/09/2018 [facility] Serum or plasma urea nitrogen/creatinine mass ratio 11 6 - 25 12/09/2018 [facility] Estimated glomerular filtration rate (GFR) determination > 60 60 12/09/2018 [facility] Glucose measurement 78 74 - 118 12/09/2018 [facility] Serum or plasma calcium measurement (mass/volume) 8.4 8.4 - 10.2 12/09/2018 [facility] Serum or plasma phenytoin measurement (mass/volume) 0.62 10 - 20 12/07/2018 [facility] Capillary blood glucose measurement by glucometer (mass/volume) 76 70 - 120 12/07/2018 [facility] Serum or plasma total bilirubin measurement (mass/volume) 0.4 0.2 - 1.2 12/06/2018 [facility] Aspartate Amino Transf (AST/SGOT) 20 5 - 34 12/06/2018 [facility] Serum or plasma alanine aminotransferase measurement (enzymatic activity/volume) 27 0 - 55 12/06/2018 [facility] Serum or plasma protein measurement (mass/volume) 5.7 6.5 - 8.1 12/06/2018 [facility] Serum or plasma albumin measurement (mass/volume) 3.2 3.5 - 5.0 12/06/2018 [facility] Plasma globulin measurement (mass/volume) 2.5 2.3 - 3.5 12/06/2018 [facility] Serum or plasma albumin/globulin mass ratio 1.3 0.8 - 2.0 12/06/2018 [facility] Serum or plasma alkaline phosphatase measurement (enzymatic activity/volume) 59 40 - 150 12/06/2018 [facility] Prothrombin time (PT) in platelet poor plasma by coagulation assay 13.3 11.9 - 14.5 12/05/2018 [facility] INR in Platelet poor plasma by Coagulation assay 0.96 12/05/2018 [facility] Activated partial thromboplastin time (aPTT) in platelet poor plasma bycoagulation assay 24.2 23.8 - 35.5 12/05/2018 [facility] Urine color determination YELLOW YELLOW 12/05/2018 [facility] Urine clarity CLEAR CLEAR 12/05/2018 [facility] Specific gravity of Urine by Test strip 1.000 1.010 - 1.025 12/05/2018 [facility] Urine pH measurement by automated test strip 6 5 - 7 12/05/2018 [facility] Urine leukocyte esterase detection by dipstick 1+ NEGATIVE 12/05/2018 [facility] Urine nitrite detection NEGATIVE NEGATIVE 12/05/2018 [facility] Urine protein measurement by test strip (mass/volume) NEGATIVE NEGATIVE 12/05/2018 [facility] Urine glucose detection NEGATIVE NEGATIVE 12/05/2018 [facility] Urine ketones detection by automated test strip NEGATIVE NEGATIVE 12/05/2018 [facility] Urine urobilinogen measurement by test strip (mass/volume) 0.2 0.2 - 1 12/05/2018 [facility] Urine total bilirubin measurement (mass/volume) NEGATIVE NEGATIVE 12/05/2018 [facility] Urine erythrocytes detection NEGATIVE NEGATIVE 12/05/2018 [facility] Automated urine sediment leukocyte count by microscopy (number/high power field) 6-10 0 - 5 12/05/2018 [facility] Erythrocytes detection in urine sediment by light microscopy 0-5 0 - 5 12/05/2018 [facility] Bacteria detection in urine sediment by light microscopy FEW NONE 12/05/2018 [facility] Epithelial cells detection in urine sediment by light microscopy FEW NONE 12/05/2018 [facility] Serum or plasma amylase measurement (enzymatic activity/volume) 38 25 - 125 12/05/2018 [facility] Serum or plasma lipase measurement (enzymatic activity/volume) 19 8 - 78 12/05/2018 [facility] Stool gastrointestinal hemoglobin detection POSITIVE NEGATIVE 11/27/2018 [facility] Mucus detection in urine sediment by light microscopy FEW RARE 11/27/2018 [facility] Serum or plasma iron measurement (mass/volume) 42 50 - 170 11/27/2018 [facility] Serum or plasma iron binding capacity measurement (mass/volume) 363 261 - 478 11/27/2018 [facility] Serum or plasma iron saturation measurement (mass fraction) 12 15 - 50 11/27/2018 [facility] Serum or plasma transferrin measurement (mass/volume) 259 180 - 382 11/27/2018 [facility] Serum or plasma ferritin measurement (mass/volume) 111.09 4.63 - 204.00 11/27/2018 [facility] Blood cobalamin (vitamin B12) measurement (mass/volume) 286 213 - 816 11/27/2018 [facility] Serum or plasma thyrotropin measurement by detection limit <=0.005 miu/l (units/volume) 1.178 0.350 - 4.940 11/27/2018 [facility] ENDOCRINOLOGY S Preg Negative *NA* (07/23/17 7:41 AM) Negative 07/23/2017 [facility] MCH 27.3 27.0 - 31.0 07/23/2017 [facility] Hct 38.4 36.0 - 48.0 07/23/2017 [facility] Hgb 12.9 12.0 - 16.0 07/23/2017 [facility] RDW 14.8 11.5 - 14.5 07/23/2017 [facility] Platelet 181 133 - 450 07/23/2017 [facility] MCHC 33.6 32.0 - 36.0 07/23/2017 [facility] MPV 9.1 7.4 - 10.4 07/23/2017 [facility] RBC 4.73 4.20 - 5.40 07/23/2017 [facility] MCV 81.2 80.0 - 98.0 07/23/2017 [facility] WBC 5.4 3.7 - 10.4 07/23/2017 [facility] Segs 65.1 45.0 - 75.0 07/23/2017 [facility] Lymphocytes 26.6 20.0 - 40.0 07/23/2017 [facility] Segs-Bands # 3.5 1.5 - 8.1 07/23/2017 [facility] HEMATOLOGY Basophils 0.7 0.0 - 1.0 07/23/2017 [facility] HEMATOLOGY Eosinophils 2.4 0.0 - 4.0 07/23/2017 [facility] HEMATOLOGY Monocytes 5.2 2.0 - 12.0 07/23/2017 [facility] Lymphocytes # 1.4 1.0 - 5.5 07/23/2017 [facility] HEMATOLOGY Eosinophils # 0.1 0.0 - 0.5 07/23/2017 [facility] Monocytes # 0.3 0.0 - 0.8 07/23/2017 [facility] HEMATOLOGY INR 1.32 0.85 - 1.17 07/23/2017 [facility] HEMATOLOGY PT 16.5 12.0 - 14.7 07/23/2017 [facility] PTT 28.4 22.9 - 35.8 07/23/2017 [facility] ELECTROLYTES AGAP 11.4 10.0 - 20.0 07/16/2017 [facility] ELECTROLYTES Globulin 3.4 2.7 - 4.2 07/16/2017 [facility] ELECTROLYTES A/G Ratio 1.2 0.7 - 1.6 07/16/2017 [facility] ELECTROLYTES B/C Ratio 21 6 - 25 07/16/2017 [facility] ELECTROLYTES eGFR 53 07/16/2017 Result Comment: The eGFR is calculated [...] should be multiplied by the estimated BMI. [facility] ELECTROLYTES Total Protein 7.4 6.4 - 8.4 07/16/2017 [facility] Calcium Lvl 9.0 8.5 - 10.5 07/16/2017 [facility] Albumin Lvl 4.0 3.5 - 5.0 07/16/2017 [facility] ALT 35 0 - 65 07/16/2017 [facility] Bili Total 0.5 0.2 - 1.3 07/16/2017 [facility] Alk Phos 94 39 - 136 07/16/2017 [facility] AST 18 0 - 37 07/16/2017 [facility] Glucose Lvl 79 70 - 99 07/16/2017 [facility] BUN 24 7 - 22 07/16/2017 [facility] Creatinine Lvl 1.17 0.50 - 1.40 07/16/2017 [facility] Sodium Lvl 145 135 - 145 07/16/2017 [facility] Potassium Lvl 4.4 3.5 - 5.1 07/16/2017 [facility] Chloride Lvl 112 95 - 109 07/16/2017 [facility]LECT[facility] CO2 26 24 - 32 07/16/2017 [facility] HEMATOLOGY PTT 26.1 22.9 - 35.8 07/16/2017 [facility] HEMATOLOGY PT 14.1 12.0 - 14.7 07/16/2017 [facility] HEMATOLOGY INR 1.09 0.85 - 1.17 07/16/2017 [facility] HEMATOLOGY MPV 8.9 7.4 - 10.4 07/16/2017 [facility] HEMATOLOGY Hgb 13.2 12.0 - 16.0 07/16/2017 [facility] HEMATOLOGY Platelet 187 133 - 450 07/16/2017 [facility] HEMATOLOGY RDW 14.6 11.5 - 14.5 07/16/2017 [facility] HEMATOLOGY MCV 81.7 80.0 - 98.0 07/16/2017 [facility] HEMATOLOG[facility] Hct 40.3 36.0 - 48.0 07/16/2017 [facility] HEMATOLOGY MCH 26.8 27.0 - 31.0 07/16/2017 [facility] HEMATOLOG[facility] MCHC 32.8 32.0 - 36.0 07/16/2017 [facility] HEMATOLOGY WBC 6.1 3.7 - 10.4 07/16/2017 [facility] HEMATOLOGY RBC 4.94 4.20 - 5.40 07/16/2017 [facility] HEMATOLOGY Basophils 0.6 0.0 - 1.0 07/16/2017 [facility] HEMATOLOGY Eosinophils 2.4 0.0 - 4.0 07/16/2017 [facility] HEMATOLOGY Segs-Bands # 3.6 1.5 - 8.1 07/16/2017 [facility] HEMATOLOGY Lymphocytes # 2.0 1.0 - 5.5 07/16/2017 [facility] HEMATOLOGY Eosinophils # 0.1 0.0 - 0.5 07/16/2017 [facility] HEMATOLOGY Monocytes # 0.4 0.0 - 0.8 07/16/2017 [facility] Lymphocytes 32.4 20.0 - 40.0 07/16/2017 [facility] HEMATOLOGY Segs 58.8 45.0 - 75.0 07/16/2017 [facility] HEMATOLOGY Monocytes 5.8 2.0 - 12.0 07/16/2017 [facility] Pathology Reports No Data Provided for This Section Diagnostic Reports Report Value Date Source Brain wo contrast MRI EXAM: MRI BRAIN WITH AND WITHOUT CONTRAST DATE: 03/17/2019 13:10 CDT INDICATION: - G40.109 Localization-related (focal) (partial) symptomatic epilepsy and epileptic syndromes with simple partial seizures, not intractable, without status epilepticus;G43.001 Migraine without aura, not intractable, with status migrainosus ADDITIONAL INFORMATION: None COMPARISON: None. TECHNIQUE: Multiplanar, multisequence MRI of the brain with and without intravenous contrast. IV contrast: None. FINDINGS: There is no mass lesion, signal change, or structural abnormality. No evidence of recent ischemia. Hippocampi are symmetric bilaterally with normal signal intensity. The ventricles and extra-axial spaces are normal. There is no acute or chronic hemorrhagic change. The intracranial arterial and venous structures demonstrate normal flow voids. Air-fluid levels within both sides of the sphenoid sinus and right maxillary sinus.. IMPRESSION: 1. No acute intracranial abnormality, including no etiology for seizures. 03/17/2019 LINNEA Burnett Consultation Notes No Data Provided for This Section Discharge Summaries No Data Provided for This Section History and Physicals No Data Provided for This Section Vital Signs Vital Sign Value Date Comments Source Height 170.18 cm 07/23/2017 [facility] BMI Calculated 34.18 07/23/2017 [facility] Weight 99 07/23/2017 [facility] Height 170.18 cm 07/16/2017 [facility] BMI Calculated 34.22 07/16/2017 [facility] Weight 99.091 07/16/2017 [facility] Encounters Location Location Details Encounter Type Encounter Number Reason For Visit Attending Provider ADM Date DC Date Status Source Outpatient [id number] NIXON SARAH 10/27/2016 [facility] Bedded Outpatient [id number] Redd Rodriguez 07/19/2017 07/19/2017 [facility] Bedded Outpatient [id number] Redd Rodriguez 07/23/2017 07/23/2017 [facility] Discharged Inpatient [id number] WALTER YAN MD 11/27/2018 11/29/2018 [facility] Discharged Inpatient [id number] WALTER YAN MD 12/05/2018 12/09/2018 [facility]patient [facility] [id number] EVGENY PATINOON 03/17/2019 03/18/2019 LINNEA Burnett Procedures Procedure Code Date Perfomer Comments Source Computed tomography of brain without radiopaque contrast [id number] 12/07/[address] [facility] EXCISION OF LEFT LARGE INTESTINE, ENDO, DIAGN [id number] 11/28/[address] [facility] Computed tomography of abdomen and pelvis with contrast [id number] 11/27/[address] [facility] Lumpectomy [id number] 09/06/1991 [facility] [id number] [facility] Assessment and Plan No Data Provided for This Section Plan of Care Plan of Care Date Source Discharge Date 12/09/18 8:53pm Disposition HOME, SELF-CARE Instructions/Education Provided Bowel Obstruction Prescriptions See Medication Section 12/09/2018 [facility] Social History Social History Date Source Smoking Status Start Date Stop Date Never Smoker 12/09/2018 [facility] Social History TypeResponse Exercise Exercise type: Walking. Employment/School Status: Employed. Highest education level: High school. Alcohol Never Smoking Status Never smoker; Exposure to Tobacco Smoke None; Cigarette Smoking Last 365 Days No; Reg Smoking Cessation Counseling No entered on: 07/16/17 10/06/2016 ALEXA Burnett Social History TypeResponse Exercise Exercise type: Walking. Employment/School Status: Employed. Highest education level: High school. Alcohol Never Smoking Status Never smoker; Exposure to Tobacco Smoke None; Cigarette Smoking Last 365 Days No; Reg Smoking Cessation Counseling No 10/06/2016 [facility] Family History No Data Provided for This Section Advance Directives Order Name Results Value Date Source Advance Directives Advance Directives Directive Response Recorded Date/Time Does the patient have an advance directive? No 12/05/18 11:46pm Do you have a Directive to Physician? No 12/05/18 1:55am Do you have a Medical Power of Road Repairer? No 12/05/18 1:55am Do you have an out of hospital Do Not Resuscitate Order? No 12/05/18 1:55am Do you have any special needs we should be aware of? No 12/05/18 1:55am Do you have a support person here with you today? Yes 12/05/18 1:55am Did patient receive Notice of Privacy Practices? Yes 12/05/18 1:55am Did patient receive patient rights and responsibilities? Yes 12/05/18 1:55am 12/09/2018 [facility] Functional Status No Data Provided for This Section
[2019-04-25] MEDS ORDERED: SODIUM CHLORIDE 0.9% 1000ML 0 ML ONE (15:58)
[2019-04-25] MEDS ORDERED: DIPHENHYDRAMINE HCL 25 MG CAP ONE (15:58)
[2019-04-25] MEDS ORDERED: ALPRAZOLAM 0.5 MG TAB ONE (15:58)
[2019-04-25] MEDS ORDERED: VERAPAMIL HCL 2.5 MG/ML 2 ML VIAL ONE (17:00)
[2019-04-25] MEDS ORDERED: FENTANYL CITRATE/PF 100MCG/2 ML INJ ONE (17:01)
[2019-04-25] MEDS ORDERED: MIDAZOLAM HCL 2 MG/2 ML VIAL ONE (17:01)
[2019-04-25] MEDS ORDERED: HEPARIN SOD/SOD CHLORIDE 2,000 ML ONE (17:02)
[2019-04-25] MEDS ORDERED: LIDOCAINE HCL 2% LOCAL 20 ML VIAL ONE (17:02)
[2019-04-25] MEDS ORDERED: SODIUM CHLORIDE 0.9% 1000ML 1,000 ML ONE (17:02)
[2019-04-25] MEDS ORDERED: IOPAMIDOL 370 MG/ML 200 ML INFUS..BTL INJ ONE (17:02)
[2019-04-25] MEDS ORDERED: ONDANSETRON HCL INJ 2MG/ML 2ML 2 MG/ML VIAL ONE (18:16)
[2019-04-25] MEDS ORDERED: ONDANSETRON HCL INJ 2MG/ML 2ML 2 MG/ML VIAL IV ONE (18:22)
[2019-04-25] MEDS ORDERED: ATROPINE SULFATE 0.1 MG/ML 10ML SYR ONE (19:22)
--- NOTE | 2019-04-25 19:45 | NUR ---
bedside report received from Yuan Kumar RN. Alert oriented and appropriate, PERRLA, respirations even and unlabored to room air. Pulses x4 extremities equal and strong. TR band to right radial, + neurovascular function Cap fill brisk < 3 sec. Skin warm and dry integrity appears intact. IV 20g to left AC presents healthy w/o s/s of infiltration or complaint. Abdomen soft and supple. currently being given Zofran for dry heaves w/ associated sulma cardia. personal affects with patient. Family at bedside. Pt and family verbalizes understanding of POC. bedside telemetry with bradycardia. TR band titration and DC home plan. -cgf
--- NOTE | 2019-04-25 20:30 | NUR ---
Pt w/ pattern of bradycardia followed by dry heaving. Dr Rodriguez alerted. VS other nguyen stable, no other gross issues or s/s of seizure activity. Bed low and locked, call light at side, siderails up x2
--- NOTE | 2019-04-25 21:10 | NUR ---
Orders received from Dr Rodriguez.
--- OUTSIDE RECORDS SUMMARY | 2019-04-25 22:09 | XMS REPORT | Continuity of Care Document ---
Author Author frenting Organization frenting Address Unknown Phone Unavailable Care Team Providers Care Bacon Skinner Name Role Phone [employer] Unavailable Unavailable Problems Problem Status Onset Date Classification Date Reported Comments Source K Active 07/21/2017 [facility] Generalized epilepsy (disorder) Active 04/27/2016 Problem 03/19/2019 Data migrated from [employer] on 09/23/15. The seizures are less prominent but still active. We have not been able to control them. Though she has very real childhood epilepsy, the seizures are most controlled by her psychic state. Originally documented as Generalized epilepsy, intractable. [facility] Antiepileptic adverse reaction (disorder) Active 04/26/2016 Problem 03/19/2019 Data migrated from [employer] on 09/23/15. SE of TPM in higher dose. We will lower the dose. Originally documented as Antiepileptic adverse reaction, initial encounter. [facility] Chronic atrial fibrillation (disorder) Active 04/26/2016 Problem 03/19/2019 Data migrated from [employer] on 09/23/15. On Eliquis. Originally documented as Chronic atrial fibrillation. [facility] Fall (finding) Active 04/26/2016 Problem 03/19/2019 Data migrated from [employer] on 09/23/15. The fall does not appear to have caused harm. She does not need reevaluation. She has ongoing cardiac evaluation. Originally documented as Fall, initial encounter. [facility] Generalized anxiety disorder (disorder) Active 04/26/2016 Problem 03/19/2019 Data migrated from [employer] on 09/23/15. Stable. Originally documented as Generalized anxiety disorder. [facility] Migraine without aura, not refractory (disorder) Active 04/26/2016 Problem 03/19/2019 Data migrated from [employer] on 09/23/15. The patient s migraines have [...] documented as Common migraine without intractability. [facility] Recurrent major depression in partial remission (disorder) Active 04/26/2016 Problem 03/19/2019 Data migrated from [employer] on 09/23/15. Doing well. Originally documented as MDD (major depressive disorder), recurrent, in partial remission. [facility] Atrial fibrillation (disorder) Active 05/18/2015 Problem 03/19/2019 Data migrated from [employer] on 09/23/15. The palpitations were from Afib. Originally documented as Atrial fibrillation. [facility] Major depressive disorder (disorder) Active 05/18/2015 Problem 03/19/2019 Data migrated from [employer] on 09/23/15. Now developing late insomnia and crying typical of MDD. Originally documented as MDD (major depressive disorder). [facility] SOB/ AFIB/ PALPATAIONS Active 06/22/2014 [facility] AFIB Active 06/21/2014 [facility] Palpitations (finding) Active 05/31/2014 Problem 03/19/2019 Data migrated from [employer] on 09/23/15. Unclear etiology. Originally documented as Palpitations. [facility] Congestive heart failure (disorder) Resolved Problem 03/19/2019 [facility] Epilepsy (disorder) Active Problem 03/19/2019 [facility] Gastroesophageal reflux disease (disorder) Active Problem 03/19/2019 [facility] History of - cardiovascular disease (context-dependent category) Resolved Problem 03/19/2019 in heart [facility] Hypertensive disorder, systemic arterial (disorder) Active Problem 03/19/2019 [facility] Migraine without aura (disorder) Active Problem 03/19/2019 [facility] Depressive disorder (disorder) Active Problem 03/19/2019 [facility] Obstructive sleep apnea syndrome (disorder) Active Problem 03/19/2019 [facility] Sciatica (disorder) Resolved Problem 03/19/2019 [facility] Intestinal obstruction Active Problem 12/10/2018 [facility] Lower gastrointestinal hemorrhage Active Problem 12/10/2018 [facility] Medications Medication Details Route Status Patient Instructions Ordering Provider Order Date Source Metronidazole (Flagyl) 500 Mg Tablet Three Times A Day Active [place] 12/09/2018 [facility] Pantoprazole Sodium (Protonix) 40 Mg Tablet. Daily Active [place] 12/09/2018 [facility] Sennosides (Senna Lax) 8.6 Mg Tablet Every 12 Hours Active [place] 12/09/2018 [facility] Alprazolam 1 MG Oral Tablet [Xanax] 1 mg, Route: PO, Drug form: TAB, ONCE, Dosing Weight 99.091, kg, PRN Anxiety, Priority: NOW, Start date: 07/19/17 7:16:00 [employer] Inactive 07/19/2017 [facility] metoprolol tartrate 50 mg oral tablet 50 mg=1 tab, PO, Bedtime, 0 Refill(s) Active 07/16/2017 [facility] Vitamin D3 1000 intl units oral capsule 1,000 IntlUnit=1 cap, PO, Daily, # 100 cap, 0 Refill(s) Active 07/16/2017 [facility] Diclofenac Potassium 1.67 MG/ML Oral Solution [Cambia] =1 pkt, PO, Daily, PRN Severe Headache, mix in 30 to 60 mL of water, # 18 pkt, 0 Refill(s) Active 07/16/2017 [facility] Aspirin (Aspir 81) 81 Mg Tablet. Daily Active [facility] Cholecalciferol (Vitamin D3) (Vitamin D3) 2,000 Unit Tablet Daily Active [facility] Lamotrigine 150 Mg Tablet Twice A Day Active [facility] Lisinopril (Prinavil / Zestril) 20 Mg Tablet Daily Active [facility] Metoprolol Succinate 50 Mg Tab.er.24h Daily Active [facility] Paroxetine Hcl 20 Mg Tablet Daily Active [facility] Topiramate 100 Mg Tablet Twice A Day Active [facility] Allergies, Adverse Reactions, Alerts Substance Category Reaction Severity Reaction type Status Date Reported Comments Source metaxalone<sup>1</sup> Assertion Drug allergy Active 04/25/2013 Data migrated from [employer] on 09/21/16. Originally documented as Skelaxin. [facility] Metaxalone Intermediate Allergy to Substance Active 11/27/2018 [facility] Skelaxin Assertion Drug allergy Active [facility] Immunizations No Data Provided for This Section Results Order Name Results Value Reference Range Date Interpretation Comments Source Blood leukocytes automated count (number/volume) 5.57 4.8 - 10.8 12/09/2018 [facility] Blood erythrocytes automated count (number/volume) 4.10 3.6 - 5.1 12/09/2018 [facility] Blood hemoglobin measurement (moles/volume) 11.5 12.0 - 16.0 12/09/2018 [facility] Automated blood hematocrit (volume fraction) 36.2 34.2 - 44.1 12/09/2018 [facility] Automated erythrocyte mean corpuscular volume 88.3 81 - 99 12/09/2018 [facility] Automated erythrocyte mean corpuscular hemoglobin (mass per erythrocyte) 28.0 28 - 32 12/09/2018 [facility] Automated erythrocyte mean corpuscular hemoglobin concentration measurement (mass/volume) 31.8 31 - 35 12/09/2018 [facility] RDW BldCo-Rto 14.0 11.7 - 14.4 12/09/2018 [facility] Automated blood platelet count (count/volume) 180 140 - 360 12/09/2018 [facility] Automated blood segmented neutrophil count as percentage of total leukocytes 57.4 38.7 - 80.0 12/09/2018 [facility] Automated blood lymphocyte count as percentage ot total leukocytes 29.3 18.0 - 39.1 12/09/2018 [facility] Automated blood monocyte count as percentage of total leukocytes 6.8 4.4 - 11.3 12/09/2018 [facility] Automated blood eosinophil count as percentage of total leukocytes 5.9 0.0 - 6.0 12/09/2018 [facility] Automated blood basophil count as percentage of total leukocytes 0.4 0.0 - 1.0 12/09/2018 [facility] IM GRANULOCYTES % 0.2 0.0 - 1.0 12/09/2018 [facility] Automated blood neutrophil count 3.2 2.1 - 6.9 12/09/2018 [facility] Blood lymphocytes count (number/volume) 1.6 1.0 - 3.2 12/09/2018 [facility] Blood monocytes automated count (number/volume) 0.4 0.2 - 0.8 12/09/2018 [facility] Automated blood eosinophil count 0.3 0.0 - 0.4 12/09/2018 [facility] Automated blood basophil count (count/volume) 0.0 0.0 - 0.1 12/09/2018 [facility] Absolute Immature Granulocyte (auto 0.01 0 - 0.1 12/09/2018 [facility] Serum or plasma sodium measurement (moles/volume) 143 136 - 145 12/09/2018 [facility] Serum or plasma potassium measurement (moles/volume) 4.0 3.5 - 5.1 12/09/2018 [facility] Serum or plasma chloride measurement (moles/volume) 113 98 - 107 12/09/2018 [facility] Serum or plasma carbon dioxide, total measurement (moles/volume) 25 22 - 29 12/09/2018 [facility] Serum or plasma anion gap 9.0 8 - 16 12/09/2018 [facility] Serum or plasma urea nitrogen measurement (mass/volume) 10 7 - 26 12/09/2018 [facility] Serum or plasma creatinine measurement (mass/volume) 0.89 0.57 - 1.11 12/09/2018 [facility] Serum or plasma urea nitrogen/creatinine mass ratio 11 6 - 25 12/09/2018 [facility] Estimated glomerular filtration rate (GFR) determination > 60 60 12/09/2018 [facility] Glucose measurement 78 74 - 118 12/09/2018 [facility] Serum or plasma calcium measurement (mass/volume) 8.4 8.4 - 10.2 12/09/2018 [facility] Serum or plasma phenytoin measurement (mass/volume) 0.62 10 - 20 12/07/2018 [facility] Capillary blood glucose measurement by glucometer (mass/volume) 76 70 - 120 12/07/2018 [facility] Serum or plasma total bilirubin measurement (mass/volume) 0.4 0.2 - 1.2 12/06/2018 [facility] Aspartate Amino Transf (AST/SGOT) 20 5 - 34 12/06/2018 [facility] Serum or plasma alanine aminotransferase measurement (enzymatic activity/volume) 27 0 - 55 12/06/2018 [facility] Serum or plasma protein measurement (mass/volume) 5.7 6.5 - 8.1 12/06/2018 [facility] Serum or plasma albumin measurement (mass/volume) 3.2 3.5 - 5.0 12/06/2018 [facility] Plasma globulin measurement (mass/volume) 2.5 2.3 - 3.5 12/06/2018 [facility] Serum or plasma albumin/globulin mass ratio 1.3 0.8 - 2.0 12/06/2018 [facility] Serum or plasma alkaline phosphatase measurement (enzymatic activity/volume) 59 40 - 150 12/06/2018 [facility] Prothrombin time (PT) in platelet poor plasma by coagulation assay 13.3 11.9 - 14.5 12/05/2018 [facility] INR in Platelet poor plasma by Coagulation assay 0.96 12/05/2018 [facility] Activated partial thromboplastin time (aPTT) in platelet poor plasma bycoagulation assay 24.2 23.8 - 35.5 12/05/2018 [facility] Urine color determination YELLOW YELLOW 12/05/2018 [facility] Urine clarity CLEAR CLEAR 12/05/2018 [facility] Specific gravity of Urine by Test strip 1.000 1.010 - 1.025 12/05/2018 [facility] Urine pH measurement by automated test strip 6 5 - 7 12/05/2018 [facility] Urine leukocyte esterase detection by dipstick 1+ NEGATIVE 12/05/2018 [facility] Urine nitrite detection NEGATIVE NEGATIVE 12/05/2018 [facility] Urine protein measurement by test strip (mass/volume) NEGATIVE NEGATIVE 12/05/2018 [facility] Urine glucose detection NEGATIVE NEGATIVE 12/05/2018 [facility] Urine ketones detection by automated test strip NEGATIVE NEGATIVE 12/05/2018 [facility] Urine urobilinogen measurement by test strip (mass/volume) 0.2 0.2 - 1 12/05/2018 [facility] Urine total bilirubin measurement (mass/volume) NEGATIVE NEGATIVE 12/05/2018 [facility] Urine erythrocytes detection NEGATIVE NEGATIVE 12/05/2018 [facility] Automated urine sediment leukocyte count by microscopy (number/high power field) 6-10 0 - 5 12/05/2018 [facility] Erythrocytes detection in urine sediment by light microscopy 0-5 0 - 5 12/05/2018 [facility] Bacteria detection in urine sediment by light microscopy FEW NONE 12/05/2018 [facility] Epithelial cells detection in urine sediment by light microscopy FEW NONE 12/05/2018 [facility] Serum or plasma amylase measurement (enzymatic activity/volume) 38 25 - 125 12/05/2018 [facility] Serum or plasma lipase measurement (enzymatic activity/volume) 19 8 - 78 12/05/2018 [facility] Stool gastrointestinal hemoglobin detection POSITIVE NEGATIVE 11/27/2018 [facility] Mucus detection in urine sediment by light microscopy FEW RARE 11/27/2018 [facility] Serum or plasma iron measurement (mass/volume) 42 50 - 170 11/27/2018 [facility] Serum or plasma iron binding capacity measurement (mass/volume) 363 261 - 478 11/27/2018 [facility] Serum or plasma iron saturation measurement (mass fraction) 12 15 - 50 11/27/2018 [facility] Serum or plasma transferrin measurement (mass/volume) 259 180 - 382 11/27/2018 [facility] Serum or plasma ferritin measurement (mass/volume) 111.09 4.63 - 204.00 11/27/2018 [facility] Blood cobalamin (vitamin B12) measurement (mass/volume) 286 213 - 816 11/27/2018 [facility] Serum or plasma thyrotropin measurement by detection limit <=0.005 miu/l (units/volume) 1.178 0.350 - 4.940 11/27/2018 [facility] ENDOCRINOLOGY S Preg Negative *NA* (07/23/17 7:41 AM) Negative 07/23/2017 [facility] MCH 27.3 27.0 - 31.0 07/23/2017 [facility] Hct 38.4 36.0 - 48.0 07/23/2017 [facility] Hgb 12.9 12.0 - 16.0 07/23/2017 [facility] RDW 14.8 11.5 - 14.5 07/23/2017 [facility] Platelet 181 133 - 450 07/23/2017 [facility] MCHC 33.6 32.0 - 36.0 07/23/2017 [facility] MPV 9.1 7.4 - 10.4 07/23/2017 [facility] RBC 4.73 4.20 - 5.40 07/23/2017 [facility] MCV 81.2 80.0 - 98.0 07/23/2017 [facility] WBC 5.4 3.7 - 10.4 07/23/2017 [facility] Segs 65.1 45.0 - 75.0 07/23/2017 [facility] Lymphocytes 26.6 20.0 - 40.0 07/23/2017 [facility] Segs-Bands # 3.5 1.5 - 8.1 07/23/2017 [facility] HEMATOLOGY Basophils 0.7 0.0 - 1.0 07/23/2017 [facility] HEMATOLOGY Eosinophils 2.4 0.0 - 4.0 07/23/2017 [facility] HEMATOLOGY Monocytes 5.2 2.0 - 12.0 07/23/2017 [facility] Lymphocytes # 1.4 1.0 - 5.5 07/23/2017 [facility] HEMATOLOGY Eosinophils # 0.1 0.0 - 0.5 07/23/2017 [facility] Monocytes # 0.3 0.0 - 0.8 07/23/2017 [facility] HEMATOLOGY INR 1.32 0.85 - 1.17 07/23/2017 [facility] HEMATOLOGY PT 16.5 12.0 - 14.7 07/23/2017 [facility] PTT 28.4 22.9 - 35.8 07/23/2017 [facility] ELECTROLYTES AGAP 11.4 10.0 - 20.0 07/16/2017 [facility] ELECTROLYTES Globulin 3.4 2.7 - 4.2 07/16/2017 [facility] ELECTROLYTES A/G Ratio 1.2 0.7 - 1.6 07/16/2017 [facility] ELECTROLYTES B/C Ratio 21 6 - 25 07/16/2017 [facility] ELECTROLYTES eGFR 53 07/16/2017 Result Comment: [...] should be multiplied by the estimated BMI. [facility] ELECTROLYTES Total Protein 7.4 6.4 - [...] HEMATOLOGY MPV 8.9 7.4 - 10.4 07/16/2017 [facility] HEMATOLOGY Hgb 13.2 12.0 - 16.0 07/16/2017 [facility] HEMATOLOGY Platelet 187 133 - 450 07/16/2017 [facility] HEMATOLOGY RDW 14.6 11.5 - 14.5 07/16/2017 [facility] HEMATOLOGY MCV 81.7 80.0 - 98.0 [...] HEMATOLOGY Eosinophils 2.4 0.0 - 4.0 07/16/2017 [facility] HEMATOLOGY Segs-Bands # 3.6 1.5 - 8.1 07/16/2017 [facility] HEMATOLOGY Lymphocytes # 2.0 1.0 - 5.5 07/16/2017 [facility] HEMATOLOGY Eosinophils # 0.1 0.0 - 0.5 07/16/2017 [facility] HEMATOLOGY Monocytes # 0.4 0.0 - 0.8 07/16/2017 [facility] Lymphocytes 32.4 20.0 - 40.0 07/16/2017 [facility] HEMATOLOGY Segs 58.8 45.0 - 75.0 07/16/2017 [facility] HEMATOLOGY Monocytes 5.8 2.0 - 12.0 07/16/2017 [facility] Pathology Reports No Data Provided for [...] Date Comments Source Height 170.18 cm 07/23/2017 [facility] BMI Calculated 34.18 07/23/2017 [facility] Weight 99 07/23/2017 [facility] Height 170.18 cm 07/16/2017 [facility] BMI Calculated 34.22 07/16/2017 [facility] Weight 99.091 07/16/2017 [facility] Encounters Location Location Details Encounter Type Encounter Number Reason For Visit Attending Provider ADM Date DC Date Status Source Outpatient [id number] NIXON SARAH 10/27/2016 [facility] Bedded Outpatient [id number] Redd Rodriguez 07/19/2017 07/19/2017 [facility] Bedded Outpatient [id number] Redd Rodriguez 07/23/2017 07/23/2017 [facility] Discharged Inpatient [id number] WALTER YAN MD 11/27/2018 11/29/2018 [facility] Discharged Inpatient [id number] WALTER YAN MD 12/05/2018 12/09/2018 [facility] [id number] EVGENY PATINOON 03/17/2019 03/18/2019 LINNEA Burnett Procedures Procedure Code Date Perfomer Comments Source Computed tomography of brain without radiopaque contrast [id number] 12/07/2018 ADAM [facility] EXCISION OF LEFT LARGE INTESTINE, ENDO, DIAGN [id number] 11/28/2018 DARMADI [facility] Computed tomography of abdomen and pelvis with contrast [id number] 11/27/2018 HUSBY [facility] Lumpectomy [id number] 09/06/1991 [id number] [facility] Assessment and Plan No Data Provided for This Section Plan of Care Plan of Care Date Source Discharge Date 12/09/18 8:53pm Disposition HOME, SELF-CARE Instructions/Education Provided Bowel Obstruction Prescriptions See Medication Section 12/09/2018 [facility] Social History Social History Date Source Smoking Status Start Date Stop Date Never Smoker 12/09/2018 [facility] Social History TypeResponse Exercise Exercise type: [...] No; Reg Smoking Cessation Counseling No 10/06/2016 [facility] Family History No Data Provided for This Section Advance Directives Order Name Results Value Date Source Advance Directives Advance Directives Directive Response Recorded Date/Time Does the patient have an advance directive? No 12/05/18 11:46pm Do you have a Directive to Physician? No 12/05/18 1:55am Do you have a Medical Power of Photoengraving Photographer? No 12/05/18 1:55am Do you have an [...] rights and responsibilities? Yes 12/05/18 1:55am 12/09/2018 [facility] Functional Status No Data Provided for This Section
--- NOTE | 2019-04-25 22:24 | NUR ---
Report provided to Yvan CARDENAS, review of procedural findings and medications given. Patient VS trend w/ bradycardia and nausea, easily aroused. maintains airway and room air saturations of 96-98%. No gross issues of pressure, pain, pallor or dysrhythmia. IV site patent with NS 0.9% at 100ml/hr by dial-flow. patient hemodynamically stable with hemostasis right radial dressing CDI w/o s/s of bleeding. Linda care provided by Becka Cuello RN, continues w/ intermittent nausea and vomitting, Reached out to Dr Rodriguez for further orders, pending. patient transferred by stretcher with telemetry to [address] [place] [address]
[2019-04-25] MEDS ORDERED: PANTOPRAZOLE SOD 40 MG TABEC PO PRN (22:45)
[2019-04-25] MEDS ORDERED: LORAZEPAM 0.5 MG TAB PO PRN (22:45)
[2019-04-25] MEDS ORDERED: ONDANSETRON HCL INJ 2MG/ML 2ML 2 MG/ML VIAL IV STA (23:21)
[2019-04-25] MEDS: ONDANSETRON HCL INJ 2MG/ML 2ML 2 MG/ML VIAL IV PRN (23:54)
[2019-04-26 04:36] VITALS: BP 138/92
--- NOTE | 2019-04-26 07:21 | NUR ---
Patient endorsed to next shift for continuity of care.
[2019-04-26] MEDS: ONDANSETRON HCL INJ 2MG/ML 2ML 2 MG/ML VIAL IV PRN (07:25)
[2019-04-26 08:13] VITALS: BP 122/70
[2019-04-26] MEDS ORDERED: LISINOPRIL 20 MG TAB PO SCH (09:00)
[2019-04-26] MEDS ORDERED: LAMOTRIGINE 100 MG TAB PO SCH (09:00)
[2019-04-26] MEDS ORDERED: TOPIRAMATE 100 MG TAB PO SCH (09:00)
[2019-04-26 10:15] VITALS: BP 122/70
[2019-04-26 10:16] VITALS: BP 122/70
[2019-04-26 12:07] VITALS: BP 130/78
--- NOTE | 2019-04-26 12:12 | NUR ---
Dr. Rodriguez paged regarding orders. Pt has sustained HR between 53-60, no c/o vomiting or nausea. No s/s of bradycardia this morning. Will continue to monitor. Call light within reach, bed in lowest position.
--- NOTE | 2019-04-26 14:49 | NUR ---
Orthostatic BP performed at this per Dr. Basurto orders. Laying 120/65; Sitting 127/76; Standing 114/83. Dr. Basurto notified regarding change
--- NOTE | 2019-04-26 19:16 | Progress Note ---
DATE: 04/26/2019 Cardiology Progress Note SUBJECTIVE: The patient denies chest pain or shortness of breath. She was held overnight due to bradycardia in the setting of nausea. This morning, she indicates she has had some lightheaded upon standing, but otherwise denies any complaints. OBJECTIVE: VITAL SIGNS: Temperature 98.2 degrees, pulse 83, respirations 16, blood pressure 130/78, and oxygen saturation 100% on room air. GENERAL: Awake, alert, no acute distress. LUNGS: Clear to auscultation bilaterally. No wheeze or crackles. CARDIOVASCULAR: Normal rate. Regular rhythm. No murmur. Normal S1, S2. ABDOMEN: Soft, nontender. EXTREMITIES: No edema. CARDIAC MEDICATIONS: Lexapro 20 mg p.o. daily. LABORATORY DATA: None today. TELEMETRY: Sinus bradycardia. IMPRESSION: 1. Atrial fibrillation. 2. Chest pain. 3. Hypertension. 4. Paroxysmal supraventricular tachycardia. RECOMMENDATIONS: Review of telemetry indicates sinus bradycardia with PVCs. Heart rate is currently well controlled. The patient is asymptomatic. She is status post ILR. Orthostatic vitals were negative. She will be discharged home to follow up with Dr. Rodriguez as an outpatient. Thank you for this consult. We will continue to follow. Hillary Basurto MD ABS/MODL /[id number]
[2019-04-26] MEDS ORDERED: PAROXETINE HCL 20 MG TAB PO SCH (21:00)
--- NOTE | 2019-04-27 06:23 | Operative Report ---
DATE OF PROCEDURE: 04/25/2019 SURGEON: Redd Rodriguez MD INDICATIONS: Coronary artery disease, abnormal stress test. PROCEDURES PERFORMED: 1. Left heart catheterization, selective coronary angiography. 2. Deployment of right wrist TR band. COMPLICATIONS: None. RECOMMENDATIONS: Medical therapy. DESCRIPTION OF PROCEDURE: Access obtained in the right radial artery. A 5-Faroese sheath was placed. Diagnostic coronary angiogram revealed minimal coronary artery disease in all coronary vessels, less than 10% luminal stenosis. No critical stenosis or occlusions were noted. No intervention was deemed necessary. Right wrist TR band applied. The patient was discharged home same day. Redd Rodriguez MD KSB/MODL /[id number]
== END 2019-04-26 17:28 | disposition home or self-care (01) ==
LOC: CATH LAB 14:29 → IMCU 21:12
PROVIDERS: ADMIT Internal Medicine Interventional Cardiology; ATTEND Internal Medicine Interventional Cardiology
DX: I25.118 Atherosclerotic heart disease of native coronary artery with other forms of angina pectoris (principal); Z01.812 Encounter for preprocedural laboratory examination; Z88.8 Allergy status to other drugs, medicaments and biological substances; I48.0 Paroxysmal atrial fibrillation; I47.1 Supraventricular tachycardia; R11.0 Nausea
CPT/HCPCS: 36415; 80053; 85025; 93454; C1769; C1887; G0378 ×2; J2001; J2250; J2405 ×2; J3010; J7030; Q9967

== ENCOUNTER 2025-05-22 09:09 | Day surgery (SDC) | payer MEDICARE ==
[2025-05-18 10:53] LABS: BASOPHILS % 0.7 % (0.0-1.0); EOSINOPHILS % 3.5 % (0.0-6.0); LYMPHOCYTES % 27.1 % (18.0-39.1); MONOCYTES % 6.2 % (4.4-11.3); NEUTROPHILS % 62.2 % (38.7-80.0); RED CELL DISTRIBUTION WIDTH 13.2 % (11.7-14.4)
[2025-05-18 11:30] LABS: CHOL/HDL RATIO 3.1 (3.0-3.6); EST GLOMERULAR FILTRATION RATE 59.0 ML/MIN (>=60); LDL CHOLESTEROL 100.0 MG/DL (60-130)
[2025-05-22] VITALS (11 sets, daily range): BP systolic 104–133; BP diastolic 64–79; PULSE 45–57; RESP 16–21; TEMP 97.5; O2SAT 97–100
[~2025-05-22] VITALS: Ht 170.2 cm; Wt 95.7 kg
[~2025-05-22 09:09] MED LIST changes: +AMLODIPINE BESYL5 MG PO; +KEPPRA750 MG PO; +LAMOTRIGINE100 MG PO; +LEXAPRO20 MG PO; +TOPAMAX25 MG PO; +ZONEGRAN100 MG PO
[2025-05-22] MEDS: DIPHENHYDRAMINE HCL 25 MG CAP ONE (10:38)
[2025-05-22] MEDS: ALPRAZOLAM 0.5 MG TAB ONE (10:38)
[2025-05-22] MEDS ORDERED: LIDOCAINE HCL 2% LOCAL 20 ML VIAL ONE (10:50)
[2025-05-22] MEDS ORDERED: HEPARIN SOD (PORCINE) 1000 UNIT/ML 30ML ONE (10:50)
[2025-05-22] MEDS ORDERED: VERAPAMIL HCL 2.5 MG/ML 2 ML VIAL ONE (10:50)
[2025-05-22] MEDS ORDERED: HEPARIN SOD/SOD CHLORIDE 2,000 ML ONE (10:50)
[2025-05-22] MEDS ORDERED: IOPAMIDOL 370 MG/ML 100 ML INFUS..BTL INJ ONE (10:51)
[2025-05-22] MEDS ORDERED: SODIUM CHLORIDE 0.9% 1000ML 1,000 ML ONE (10:51)
[2025-05-22] MEDS ORDERED: NITROGLYCERIN/D5W 200 MCG/ML 250 ML ONE (10:51)
[2025-05-22] MEDS ORDERED: MIDAZOLAM HCL 2 MG/2 ML VIAL ONE (10:57)
[2025-05-22] MEDS ORDERED: FENTANYL CITRATE/PF 100MCG/2 ML INJ ONE (10:57)
== END 2025-05-22 13:30 | disposition home or self-care (01) ==
LOC: CATH LAB 09:09
PROVIDERS: ATTEND Internal Medicine Interventional Cardiology
DX: I25.119 Atherosclerotic heart disease of native coronary artery with unspecified angina pectoris (principal); R94.39 Abnormal result of other cardiovascular function study; Z01.812 Encounter for preprocedural laboratory examination; Z79.82 Long term (current) use of aspirin; Z79.899 Other long term (current) drug therapy
CPT/HCPCS: 36415; 76937; 80053; 80061; 83880; 85025; 93454; C1887 ×2; J1644; J2003; J2250; J3010; J7030; Q9967; U0002; 99152; 99153